=== PATIENT | male | born 1965 | race Caucasian/White ===

== ENCOUNTER 2017-11-15 11:57 | Inpatient (IN) ==
[2017-11-15] MEDS ORDERED: *HR* Promethazine 25 MG/ML VIAL IVP PRN (14:04)
[2017-11-15] MEDS ORDERED: Naloxone 0.4 MG/ML INJ IVP PRN (14:04)
[2017-11-15] MEDS ORDERED: *HR* LORazepam 2 MG/ML VIAL IVP PRN (14:04)
[2017-11-15 14:50] LABS: Mean Corpuscular HGB Conc 35.1 g/dL (31.6-35.5); Mean Corpuscular Volume 102.5 fL (83.0-100.0); Mean Platelet Volume 8.8 fL (9.4-12.4); Platelet Count 127 K/mcL (140-400); Red Blood Count 3.61 M/mcL (4.19-5.50); Red Cell Distribution Width 18.3 % (11.5-14.5)
--- NOTE | 2017-11-15 14:52 | Internal Med History&Physical ---
Date of Encounter: 11/15/17 Time of Encounter: 13:30 Internal Medicine - H&P: HPI Chief complaint: swelling; chills; SOB Admitted From: Hospital to Hospital Transfer Plans for Post Hospital Care: Home History of present illness: Mr. Lomeli is a 52 year old male who presents in direct transfer from [facility] ER for concerns of ascites, alcoholic induced hepatitis, and jaundice. I saw patient immediately upon arrival to the floor. He appears ill, jaundiced , has active chills/rigors, and complains of swelling everywhere and shortness of breath. He denies any chest pain. He has had a dry cough. He denies any abdominal pain, nausea, vomiting, or diarrhea. I inquired about his alcohol drinking, and he states his last drink was roughly 6-7 days ago. He is tachycardic, shaking, jittery, and blood pressure is elevated. Clinical signs and presentation point towards alcohol withdrawal. He denies any sign or symptom of alcohol withdrawal. Clinically, however, I am concerned about acute withdrawal. Additionally, he has mottling of his legs and other symptoms concerning for sepsis as well. I explained this to patient and his friend who was present at bedside. I inquired about prior episodes of any alcohol and/or prior hospitalizations. He states he has never been hospitalized before and denies ever having had alcohol withdrawal. He underestimates his level of alcohol intake as confirmed by his friend. I reviewed his labs at [facility] and note that he has a significant bilirubin level of 13.4; elevated transaminase, and coagulopathy of presumed liver disease. I explained to patient and his friend that we will treat him for sepsis, EtoH withdrawal, and consult GI as well as intervention radiology. We will try and attempt to proceed with paracentesis once his coagulopathy is corrected. If his liver dysfunction worsens and/or recommended by GI, he may need transfer to a tertiary care medical center such as [facility] or [facility]. Past Med Surg Social Fam HX - Past Medical History Source: patient, obtained from family, other ([facility] records) Medical history: no medical history Psychiatric history: no psych history - Past Surgical History Surgical History: orthopedic, other Additional surgical history: RIGHT FOOT SURGERY - Social History Smoking Status: Never smoker Smokeless Tobacco Status: No Alcohol use: heavy Drug use: none Current living situation: Home, With Family Activity Level: Independent ambulation Recent Out of Country Travel Within the Last 8 Weeks: No - Family History Mother Living Status: Hx Family GI Disorders: No Father Living Status: Still Living Hx Family GI Disorders: No Internal Medicine - H&P: Meds No Known Home Drugs 11/15/17 [History] 3 Allergy/AdvReac Type Severity Reaction Status Date / Time No Known Allergies Allergy Verified 11/15/17 08:19 - Constitutional Constitutional: chills, fatigue, night sweats, weakness, no fever(s) - EENT Eyes: no blurry vision, no change in vision Ears: no ear pain, no tinnitus Nose, mouth and throat: no nasal congestion, no sinus pressure, no sore throat - Cardiovascular Cardiovascular ROS IM: dyspnea, dyspnea on exertion, edema, orthopnea, palpitations, no chest pain - Respiratory Respiratory: cough, dyspnea, dyspnea on exertion, no hemoptysis, no chest congestion, no excessive phlegm production, no change in phlegm color, no pain with cough - Gastrointestinal Gastrointestinal: bloating, no abdominal pain, no diarrhea, no hematemesis, no hematochezia, no melena, no nausea, no vomiting - Genitourinary Genitourinary ROS male: no dysuria, no flank pain, no hematuria - Musculoskeletal Musculoskeletal ROS IM: no atrophy, no back pain, no joint swelling - Integumentary Integumentary IM: unusual bruising, jaundice - Neurological Neurological ROS: no dizziness, no focal weakness, no frequent falls, no headache(s) - Psychiatric Psychiatric: no anxiety, no depression - Endocrine Endocrine IM: no polydipsia, no polyuria - Hematologic/Lymphatic Hematologic/Lymphatic: easy bruising - Allergic/Immunologic Allergic/Immunologic: wheezing, no GI upset with certain foods - Constitutional Vitals: Temp Pulse Resp BP Pulse Ox 98.8 F 142 20 123/80 96 11/15/17 13:45 11/15/17 14:04 11/15/17 13:45 11/15/17 14:04 11/15/17 14:04 General appearance: Present: cooperative, A&O X 3, answers questions appropriately Exam: actively shaking/rigors; jitters; jaundiced; mottling of legs - Head Head exam: Present: atraumatic, normal inspection - Eye Eye exam: Present: EOMI, PERRL, scleral icterus Pupils: Present: normal accommodation - ENT ENT exam: Present: mucous membranes dry, normal exam, normal oropharynx - Neck Neck exam general surgery: Present: full ROM, supple. Absent: lymphadenopathy, tenderness, nuchal rigidity, thyromegaly - Respiratory Respiratory exam: Present: decreased breath sounds, rales (right base), respiratory distress, rhonchi, tachypnea. Absent: chest wall tenderness, wheezes - Cardiovascular Cardiovascular exam: Present: distant heart sounds, +S1, +S2, tachycardia. Absent: diastolic murmur, systolic murmur - GI/Abdominal GI/Abdominal exam: Present: distended, hypoactive bowel sounds, soft. Absent: guarding, hepatomegaly, mass, rebound, splenomegaly, tenderness, no peritoneal signs - Extremities Exam Extremities exam: Present: full ROM, mottling (BLE), pedal edema (3+). Absent: calf tenderness, cyanotic, joint swelling, normal capillary refill (delayed; roughly 4 seconds), tenderness - Back Exam Back exam: Absent: CVA tenderness (L), CVA tenderness (R) - Neurological Exam Neurological exam: Present: alert, CN II-XII intact, oriented X3, no focal deficits, strengths equal and symetr throughout Additional comments: jitters and asterixis (mild) - Psychiatric Psychiatric exam: Present: normal affect, normal mood - Skin Skin exam: Present: dry, petechiae, warm Additional comments: jaundiced; palmar erythema Internal Med - H&P Results - Labs Labs: I reviewed labs from [facility] and include the following: WBC 15.4 Hemoglobin 13.2 Hematocrit 37.6 Platelets 140 PTT 30.6 INR 2.7 Sodium 128 Potassium 3.5 Chloride 91 Carbon dioxide 27 BUN 12 Creatinine 1.14 Lactic acid 2.6 Total bilirubin 13.4 Direct bilirubin 8.6 AST 121 ALT 38 Alkaline phosphatase 231 - EKG Data -: EKG Interpreted by Myself EKG shows normal: sinus rhythm Rate: tachycardia - EKG Data Prior EKG available for review: no EKG comments: 11/15/17 15:02 Sinus tachycardia; no acute ST-T changes noted - Impressions ITS Impressions Chest X-Ray 11/15/17 13:42 IMPRESSION: Right basilar atelectasis. D/ / Chayo Sandoval MD / Chayo Sandoval MD Interpreting Provider: Chayo Sandoval MD - Diagnostic Studies CT scan - abdomen Additional comments: Report reviewed from [facility] -- findings noted - Assessment and plan (1) Sepsis Current Visit: Yes Status: Acute Assessment and plan: 1. Suspect GI source (SBP, colitis, etc.). 2. Will trend lactate levels, treat with IV Zosyn and Flagyl. 3. BP preserved. Will place on IVF and bolus if necessary. 4. Will order blood and urine cultures STAT. 5. Will need peritoneal fluid cultures once paracentesis performed. 6. Correct coagulopathy with FFP and Vitamin K. 7. Consult IR for paracentesis. Qualifiers: Sepsis type: sepsis due to unspecified organism Qualified Code(s): A41.9 - Sepsis, unspecified organism (2) Alcohol withdrawal Current Visit: Yes Status: Acute Assessment and plan: 1. Will place on CIWA protocol. 2. Will place on MVI, Thiamine, and Folate. 3. Monitor for worsening withdrawal. 4. Will add low dose beta cherry for tachycardia and withdrawal symptoms. 5. Patient will need to abstain from alcohol completely if he has any hope of senior care recovery -- discussed with patient and friend at length. Qualifiers: Complication of substance-induced condition: with unspecified complication Qualified Code(s): F10.239 - Alcohol dependence with withdrawal, unspecified (3) Cirrhosis of liver with ascites Current Visit: Yes Status: Acute Assessment and plan: 1. GI consult and IR consult as above. 2. EtOH abstinence recommended. Qualifiers: Hepatic cirrhosis type: alcoholic cirrhosis Qualified Code(s): K70.31 - Alcoholic cirrhosis of liver with ascites (4) DVT prophylaxis Current Visit: Yes Status: Acute Assessment and plan: 1. EPCD's.
[2017-11-15 14:56] LABS: INR 2.7
[2017-11-15 14:59] LABS: Activated Partial Thrombo Time 49.9 Seconds (26.0-36.0)
[2017-11-15] MEDS: 0.9 % Sodium Chloride 1,000 ML IVC SCH (15:08)
[2017-11-15] MEDS: MetroNIDAZOLE 500 MG/100 ML 500 MG/100 ML BAG IVPB SCH (15:10)
[2017-11-15 15:11] LABS: Anisocytosis 1+ (Not Present); Eosinophils # 0.3 K/mcL (0.0-0.6); Lymphocytes # 0.7 K/mcL (0.6-4.6); Macrocytosis Present (Not Present); Neutrophils # 14.6 K/mcL (1.6-8.9); Platelet Estimate Decreased (Normal)
[2017-11-15] MEDS: Piperacillin/Tazobactam 3.375 GM in 0.9 % Sodium Chloride Mini Bag 100 ML IVPB SCH (15:12)
[2017-11-15 15:16] LABS: Alanine Aminotransferase 34 Units/L (7-52); Albumin 2.2 g/dL (3.5-5.7); Albumin/Globulin Ratio 0.5 (1.1-2.2); Alkaline Phosphatase 213 Units/L (34-104); Aspartate Amino Transferase 104 Units/L (13-39); BUN/Creatinine Ratio 11 (6-26); Bilirubin,Direct 7.7 mg/dL (0.0-0.2); Bilirubin,Indirect 5.5 mg/dL (0.0-1.2); Bilirubin,Total 13.2 mg/dL (0.3-1.0); Blood Urea Nitrogen 14 mg/dL (6-20); Calcium 7.3 mg/dL (8.6-10.3); Carbon Dioxide 22 mEq/L (23-29); Chloride 92 mEq/L (98-107); Globulin 4.2 g/dL (2.4-3.5); Glucose 141 mg/dL (70-105); Osmolality,Calculated 267 (280-300); Potassium 3.5 mEq/L (3.5-5.1); Sodium 127 mEq/L (136-145); Total Protein 6.4 g/dL (6.4-8.9); eGFR For Non-African Americans > 60 (> 60)
[2017-11-15] MEDS ORDERED: 0.9 % Sodium Chloride 1,000 ML IVC ONE ×2 (15:39→15:59)
[2017-11-15 16:08] LABS: ABG Base Excess 0 mEq/L (-2 to 3); ABG HCO3 23 mEq/L (21-27); ABG Oxygen Saturation 97 % (95-98); ABG PCO2 31 mmHg (35-45); ABG PH 7.48 pH Units (7.32-7.45); ABG PO2 79 mmHg (85-104); ABG TCO2 24 mEq/L (20-26)
[2017-11-15] MEDS ORDERED: Albuterol 2.5 MG/3 ML NEBULIZER IH PRN (17:55)
[2017-11-15] MEDS: Ipratropium/Albuterol Neb 3 ML IH SCH ×2 (18:56→22:09)
[2017-11-15] MEDS: Thiamine (B-1) 100 MG, Folic Acid 1 MG, MVI, adult with vitamin K 10 ML in 0.9 % Sodi... IVPB SCH (19:19)
[2017-11-15] MEDS ORDERED: 0.9 % Sodium Chloride 250 ML ONE (23:55)
[2017-11-16] MEDS: MetroNIDAZOLE 500 MG/100 ML 500 MG/100 ML BAG IVPB SCH ×3 (00:18→16:49)
[2017-11-16] MEDS: Piperacillin/Tazobactam 3.375 GM in 0.9 % Sodium Chloride Mini Bag 100 ML IVPB SCH ×4 (00:19→23:43)
[2017-11-16 03:54] LABS: Basophils % 0.2 %; Eosinophils # 0.1 K/mcL (0.0-0.6); Eosinophils % 0.6 %; Hematocrit 30.8 % (37.5-50.1); Lymphocytes # 1.5 K/mcL (0.6-4.6); Lymphocytes % 8.9 %; Mean Corpuscular HGB Conc 34.7 g/dL (31.6-35.5); Mean Corpuscular Hemoglobin 35.4 pg (28.0-33.3); Mean Platelet Volume 9.1 fL (9.4-12.4); Monocytes # 1.9 K/mcL (0.0-1.3); Monocytes % 11.2 %; Nucleated Red Blood Cells 0.1 /100 WBC (0); Platelet Count 105 K/mcL (140-400); Red Blood Count 3.02 M/mcL (4.19-5.50); Red Cell Distribution Width 18.5 % (11.5-14.5); Segmented Neutrophils % 78.1 %
[2017-11-16 03:57] LABS: Hemoglobin 10.7 g/dL (12.9-16.9)
[2017-11-16 04:02] LABS: INR 1.9; Prothrombin Time 21.2 Seconds (9.4-12.1)
[2017-11-16] MEDS: Ipratropium/Albuterol Neb 3 ML IH SCH ×2 (04:03→10:45)
[2017-11-16 04:04] LABS: Activated Partial Thrombo Time 38.2 Seconds (26.0-36.0)
[2017-11-16 04:14] LABS: Alanine Aminotransferase 29 Units/L (7-52); Albumin 2.3 g/dL (3.5-5.7); Albumin/Globulin Ratio 0.6 (1.1-2.2); Alkaline Phosphatase 164 Units/L (34-104); Aspartate Amino Transferase 77 Units/L (13-39); BUN/Creatinine Ratio 13 (6-26); Bilirubin,Total 10.6 mg/dL (0.3-1.0); Blood Urea Nitrogen 11 mg/dL (6-20); Calcium 7.2 mg/dL (8.6-10.3); Carbon Dioxide 24 mEq/L (23-29); Chloride 99 mEq/L (98-107); Globulin 3.7 g/dL (2.4-3.5); Glucose 105 mg/dL (70-105); Magnesium 2.2 mg/dL (1.6-2.6); Osmolality,Calculated 276 (280-300); Potassium 3.2 mEq/L (3.5-5.1); Sodium 133 mEq/L (136-145); eGFR For Non-African Americans > 60 (> 60)
[2017-11-16 04:22] LABS: Platelet Estimate Normal (Normal)
[2017-11-16] MEDS: 0.9 % Sodium Chloride 1,000 ML IVC SCH (08:26)
--- NOTE | 2017-11-16 11:53 | Gastroenterology Consult Note ---
<Heladio Josephnoah Shore - Last Filed: 11/16/17 11:47> Date of Encounter: 11/16/17 Time of Encounter: 08:50 - Assessment and plan (1) Alcoholic hepatitis with ascites Current Visit: Yes Status: Acute Assessment and plan: Pt is being treated for sepsis as well. Labs are improving. He is continued on MVI, thiamine, IV fluids. He reports no ETOH in the past 8 days and plans to start AA at discharge to continue to abstain. Monitor labs, supportive care. (2) Alcoholic cirrhosis of liver with ascites Current Visit: Yes Status: Acute Assessment and plan: Pt is scheduled for paracentesis today. He needs to follow with GI as an outpatient. He will likely need continued on diuretics, however he is hypokalemic and borderline hypotensive at this time. He needs screening EGD to check for esophageal varices, can be done as an outpatient. - Time Spent With Patient Total time spent is greater than 50% in coordination of care (as documented) at patient's floor/unit and/or counseling patient: GI History of Present Illness - Data of Consult Patient: new to practice Consult date: 11/16/17 Requesting Physician: Fredis Stevens - Consult Narrative Reason for consult: alcoholic cirrhosis History of present illness: Mr. Lomeli is a 52 year old male who presents in direct transfer from [facility] ER for concerns of ascites, alcoholic induced hepatitis, and jaundice. He complained of swelling, shortness of breath, chills and jaundice. He denies abdominal pain, nausea, vomiting or diarrhea. He was tachycardic, shaking, jittery, and blood pressure was elevated. Clinical signs and presentation pointed towards alcohol withdrawal. He also had mottling of his legs and other symptoms concerning for sepsis as well. He states he has never been hospitalized before and denies ever having had alcohol withdrawal. He admits to daily drinkup up until 8 days ago. He said he recently switched to wine and slowly decreased the amount of daily alcohol to nothing. Labs showed a total bili of 13.4, down to 10.[address] abdomen showed Hepatomegaly, hepatic steatosis, and changes of hepatic cirrhosis.Sequela of portal hypertension. Low-attenuation 3.4 cm and 5.2 cm lesions adjacent to the gallbladder fossa in the left hepatic lobe. Although these could represent focal areas of fatty infiltration, MRI of the liver with contrast is recommended to exclude a neoplasm. Moderate amount of abdominal and pelvic ascites. Circumferential wall thickening in the hepatic flexure of the transverse colon and in the right colon/cecum. Although this could be reactive to the cirrhosis/ascites, colitis or colonic neoplasm not excluded. denies previous scopes MELD na- 26 Child class C-12 DF 52.5 poor prognosis Past Med Surg Social Fam HX - Past Medical History Medical history: no medical history Psychiatric history: no psych history - Past Surgical History Surgical History: orthopedic, other Additional surgical history: RIGHT FOOT SURGERY - Social History Smoking Status: Never smoker Smokeless Tobacco Status: No Alcohol use: heavy Drug use: none - Family History Mother Living Status: Hx Family GI Disorders: No Father Living Status: Still Living Hx Family GI Disorders: No Review of Systems: GI: as per [facility] GENERAL: denies fever, has some chills EYES: yellow discoloration ENT: denies pain with swallowing or difficulty swallowing CARDIO: denies chest pain, palpitations RESP: Shortness of breath with exertion : dark urine NEURO: weakness HEME: Denies any bruising MS: denies joint pain, joint swelling or back pain. DERM: denies rash or itching PSYCH: history of anxiety and depression - Constitutional Vitals: Temp Pulse Resp BP Pulse Ox 97.9 F 104 18 109/86 97 11/16/17 11:25 11/16/17 11:25 11/16/17 11:25 11/16/17 11:25 11/16/17 11:25 Exam: CONSTITUTIONAL:~alert, no acute distress.~HEAD:~normocephalic.~EYES:~jaundice.~ NECK:~no obvious swelling.~HEART:~regular rate and rhythm, no murmurs.~LUNGS:~ bilateral fair air entry, respirations slightlly labored.~ABDOMEN:~distended, soft, non tender, ascites noted.~RECTAL EXAM:~Deferred.~EXTREMITIES:~no clubbing , or cyanosis, 2+ BLE edema.~SKIN:~jaundice.~NEUROLOGIC:~no obvious focal defect.~~~~ Results - Labs CBC & Chem 7: 11/16/17 03:30 11/16/17 03:30 Labs: Last Result Calcium 7.2 mg/dL (8.6-10.3) L 11/16/17 03:30 Entire Visit Hgb 10.7 g/dL (12.9-16.9) L D 11/16/17 03:30 Hct 30.8 % (37.5-50.1) L 11/16/17 03:30 PT 21.2 Seconds (9.4-12.1) H 11/16/17 03:30 Total Bilirubin 10.6 mg/dL (0.3-1.0) H 11/16/17 03:30 AST 77 Units/L (13-39) H 11/16/17 03:30 ALT 29 Units/L (7-52) 11/16/17 03:30 - ABG ABG results: ABG ABG pH 7.48 pH Units (7.32-7.45) H 11/15/17 15:50 ABG pCO2 31 mmHg (35-45) L 11/15/17 15:50 ABG pO2 79 mmHg (85-104) L 11/15/17 15:50 ABG O2 Saturation 97 % (95-98) 11/15/17 15:50 PT/INR, D-dimer PT 21.2 Seconds (9.4-12.1) H 11/16/17 03:30 - Impressions Impressions Chest X-Ray 11/15/17 13:42 IMPRESSION: Right basilar atelectasis. D/ / Chayo Sandoval MD / Chayo Sandoval MD Interpreting Provider: Chayo Sandoval MD Consult Discharge Plan - Plan Referrals: Christina Young, AERIAL SPRAYER [Advanced Practice Nurse] - (this will be a new patient visit please call on discharge to get appointment) <Karen Clemente - Last Filed: 11/16/17 17:35> Date of Encounter: 11/16/17 Time of Encounter: 17:00 - Time Spent With Patient Total time spent is greater than 50% in coordination of care (as documented) at patient's floor/unit and/or counseling patient: GI History of Present Illness - Data of Consult Requesting Physician: Fredis Stevens - Consult Narrative History of present illness: Mr. Lomeli is a 52 year old male - Constitutional Vitals: Temp Pulse Resp BP Pulse Ox 98.7 F 70 16 117/77 97 11/16/17 16:35 11/16/17 16:35 11/16/17 16:35 11/16/17 16:35 11/16/17 16:35 Results - Labs CBC & Chem 7: 11/16/17 03:30 11/16/17 03:30 Labs: Last Result Calcium 7.2 mg/dL (8.6-10.3) L 11/16/17 03:30 Entire Visit Hgb 10.7 g/dL (12.9-16.9) L D 11/16/17 03:30 Hct 30.8 % (37.5-50.1) L 11/16/17 03:30 PT 21.2 Seconds (9.4-12.1) H 11/16/17 03:30 Total Bilirubin 10.6 mg/dL (0.3-1.0) H 11/16/17 03:30 AST 77 Units/L (13-39) H 11/16/17 03:30 ALT 29 Units/L (7-52) 11/16/17 03:30 - ABG ABG results: ABG ABG pH 7.48 pH Units (7.32-7.45) H 11/15/17 15:50 ABG pCO2 31 mmHg (35-45) L 11/15/17 15:50 ABG pO2 79 mmHg (85-104) L 11/15/17 15:50 ABG O2 Saturation 97 % (95-98) 11/15/17 15:50 PT/INR, D-dimer PT 21.2 Seconds (9.4-12.1) H 11/16/17 03:30 - Impressions Impressions Abdomen MRI 11/16/17 13:00 IMPRESSION: Limited evaluation due to motion artifact. The liver is markedly enlarged with severe steatosis and probable cirrhosis. The hypodense areas noted on recent CT correspond to more confluent areas of marked steatosis. No discrete liver lesion definitely seen. Mild splenomegaly suggests portal hypertension. D/ / Brice Amador MD / Brice Amador MD Interpreting Provider: Brice Amador MD - Attending Attestation I have personally performed a face to face evaluation on this patient. I have reviewed and agree with the care plan. History and Exam by me shows: Patient seen. Patient with the alcoholic cirrhosis with ascites and alcoholic hepatitis. Status post paracentesis. Does has coagulopathy and the malnutrition with very low albumin. Also has fluid retention with ascites and leg swelling. Recommendation: Vitamin K daily daily 10 mg subcutaneous for 3 days, albumin. given 50 g daily for 3 days. Low-dose lasix Aldactone 20/50. No steroids for now for his alcoholic hepatitis as LFTs are improving. Follow-up with GI as an outpatient.
[2017-11-16] MEDS ORDERED: Gadolinium Contrast Agent (WT Based) IV PRN (13:00)
[2017-11-16] MEDS ORDERED: *HR* LORazepam 2 MG/ML VIAL IVP PRN ×2 (13:36)
[2017-11-16] MEDS: Thiamine (B-1) 100 MG, Folic Acid 1 MG, MVI, adult with vitamin K 10 ML in 0.9 % Sodi... IVPB SCH (16:50)
--- NOTE | 2017-11-16 17:35 | Internal Med Progress Note ---
Hospitalist Progress Note - Encounter Date of Encounter: 11/16/17 Time of Encounter: 17:45 - Subjective Interval History: Patient is still has generalized swelling but denies shortness of breath chest pain fever chills nausea vomiting headache dizziness. Patient had diagnostic and therapeutic paracentesis with 1400 mL drained. Review the lab with high white count trending down INR, high bilirubin. Reviewed GI economic consultant note - Exam Vitals: Temp Pulse Resp BP Pulse Ox 98.7 F 70 16 117/77 97 11/16/17 16:35 11/16/17 16:35 11/16/17 16:35 11/16/17 16:35 11/16/17 16:35 Exam: General appearance: No acute distress, A&O X 3 Head exam: Atraumatic Eye exam: EOMI, PERRLA ENT exam: Moist oral mucosa Neck nontender, supple Respiratory exam: Crepitation bilaterally Cardiovascular exam: Regular rate and rhythm, no systolic murmur Abdominal exam: Soft, nontender, ascites, positive bowel sounds Extremities exam: No calf tenderness, +2 pedal edema Present: Neurological exam: Alert, awake, oriented 3, CN II-XII intact, no focal deficits. No facial droop. Normal speech. - Assessment and Plan (1) Cirrhosis of liver with ascites Current Visit: Yes Status: Inactive Assessment and Plan: Most likely alcohol induced hepatitis but never had any workup. New onset. Hepatitis panel ordered. Trending down INR but will monitor. 1 dose of vitamin K received in ER. MRI abdomen ordered by GI specialist with markedly enlarged liver with CVR is status post a sent probable cirrhosis, mildly splenomegaly suggests portal hypertension but no lesion found. Diagnostic and therapeutic paracentesis with 1400 mL drained by IR. awaited ascites fluid report. Alcohol abstinence recommended. Continue banana bag. IV Lasix 20 mg daily with a strict I&O's, fluid restriction, low-salt diet. BNP and echocardiogram also ordered to rule out underlying cardiac etiology. (2) Sepsis Current Visit: Yes Status: Acute Assessment and Plan: Raised lactic assess but normal trending down. Unknown source but suspecting GI. Patient denies any diarrhea abdominal pain but had more like distention and now relieved after paracentesis. Flagyl was stopped but will continue Zosyn and follow the culture report. (3) Alcohol withdrawal Current Visit: Yes Status: Acute Assessment and Plan: Patient had alcohol withdrawal in the past but not sure recently. Continue CIWA protocol, banana bag but will change to oral to avoid extra fluid. Low- dose beta cherry for tachycardia if needed. Beta cherry will also help and portal hypertension. (4) Portal hypertension Current Visit: Yes Status: Acute Assessment and Plan: No active bleed. Splenomegaly mild . Newly diagnosed. Will need EGD on OPD basis. GI on board (5) DVT prophylaxis Current Visit: Yes Status: Acute Assessment and Plan: 1. EPCD's. - Time Spent with Patient Total time spent is greater than 50% in coordination of care (as documented) at patient's floor/unit and/or counseling patient: 25 - 35 minutes Internal Medicine: Result - Labs CBC & Chem 7: 11/16/17 03:30 11/16/17 03:30 Labs: Short CBC 11/16/17 Range/Units 03:30 WBC 16.7 H (4.3-11.1) K/mcL Hgb 10.7 L D (12.9-16.9) g/dL Hct 30.8 L (37.5-50.1) % Plt Count 105 L (140-400) K/mcL Neutrophils # 13.0 H (1.6-8.9) K/mcL BMP 11/16/17 03:30 Sodium 133 L Potassium 3.2 L Chloride 99 Carbon Dioxide 24 BUN 11 Creatinine 0.83 Glucose 105 Calcium 7.2 L Liver Function 11/16/17 Range/Units 03:30 Total Bilirubin 10.6 H (0.3-1.0) mg/dL AST 77 H (13-39) Units/L ALT 29 (7-52) Units/L Alkaline Phosphatase 164 H (34-104) Units/L Albumin 2.3 L (3.5-5.7) g/dL - ABG Interpretation ABG results: ABG ABG pH 7.48 pH Units (7.32-7.45) H 11/15/17 15:50 ABG pCO2 31 mmHg (35-45) L 11/15/17 15:50 ABG pO2 79 mmHg (85-104) L 11/15/17 15:50 ABG O2 Saturation 97 % (95-98) 11/15/17 15:50 PT/INR, D-dimer PT 21.2 Seconds (9.4-12.1) H 11/16/17 03:30 - Impressions Impressions Abdomen MRI 11/16/17 13:00 IMPRESSION: Limited evaluation due to motion artifact. The liver is markedly enlarged with severe steatosis and probable cirrhosis. The hypodense areas noted on recent CT correspond to more confluent areas of marked steatosis. No discrete liver lesion definitely seen. Mild splenomegaly suggests portal hypertension. D/ / Brice Amador MD / Brice Amador MD Interpreting Provider: Brice Amador MD Consult Discharge Plan - Plan Referrals: Christina Young, PEDIATRIC NEUROPSYCHOLOGIST [Advanced Practice Nurse] - (this will be a new patient visit please call on discharge to get appointment) (1) Cirrhosis of liver with ascites Qualifiers: Hepatic cirrhosis type: alcoholic cirrhosis Qualified Code(s): K70.31 - Alcoholic cirrhosis of liver with ascites (2) Sepsis Qualifiers: Sepsis type: sepsis due to unspecified organism Qualified Code(s): A41.9 - Sepsis, unspecified organism (3) Alcohol withdrawal Qualifiers: Complication of substance-induced condition: with unspecified complication Qualified Code(s): F10.239 - Alcohol dependence with withdrawal, unspecified
[2017-11-16] MEDS: Furosemide 20 MG/2 ML VIAL IVP SCH (18:01)
[2017-11-16 19:01] LABS: Albumin 2.1 g/dL (3.5-5.7); Albumin/Globulin Ratio 0.6 (1.1-2.2); Bilirubin,Direct 5.8 mg/dL (0.0-0.2); Bilirubin,Indirect 3.9 mg/dL (0.0-1.2); Bilirubin,Total 9.7 mg/dL (0.3-1.0); Globulin 3.8 g/dL (2.4-3.5); Total Protein 5.9 g/dL (6.4-8.9)
[2017-11-16] MEDS ORDERED: Perflutren Lipid Microsphere 1.3 ML in 0.9 % Sodium Chloride 8.7 ML IVP ONE (21:46)
--- NOTE | 2017-11-17 02:15 | Electrocardiograph Report ---
[place] [address] Test Date: 2017-11-16 Pat Name: Twan Lomeli Department: 110 Room: 2N10 Gender: M Repair Clerk: AUBRIE : 1965 Requested By: Anthony Cardoza Order Number: [id number] Reading MD: Joi Hahn Measurements Intervals [place] Rate: 93 P: 45 PA: 162 QRS: 15 QRSD: 98 T: 19 QT: 392 QTc: 442 Interpretive Statements SINUS RHYTHM NONSPECIFIC ST-WAVE ABNORMALITY Electronically Signed On 11-16-2017 16:09:01 EDT by Joi Hahn
--- NOTE | 2017-11-17 02:21 | Electrocardiograph Report ---
[address] [address] Test Date: 2017-11-15 Pat Name: Twan Lomeli Department: 110 Room: 2N10 Gender: M Head Of Advertising: CHANTELL : 1965 Requested By: Anthony Cardoza Order Number: [id number] Reading MD: Joi Hahn Measurements Intervals [place] Rate: 145 P: 43 DC: 148 QRS: 12 QRSD: 86 T: 48 QT: 288 QTc: 372 Interpretive Statements SINUS TACHYCARDIA NONSPECIFIC ST-WAVE ABNORMALITY ABNORMAL RHYTHM ECG Electronically Signed On 11-16-2017 16:22:09 EDT by Joi Hahn
[2017-11-17 02:24] LABS: RBC,Peritoneal Fluid 0.003 M/mcL
[2017-11-17 02:35] LABS: Appearance of Peritoneal Fl CLOUDY (Clear)
[2017-11-17 02:44] LABS: Amylase,Peritoneal Fluid 15 Units/L (No Ref Range); Glucose,Peritoneal Fluid 64 mg/dL (No Ref Range); LDH,Peritoneal Fluid 157 Units/L (No Ref Range); Total Protein,Peritoneal Fluid < 3.0 g/dL (No Ref Range)
[2017-11-17 03:59] LABS: Hematocrit 35.5 % (37.5-50.1); Mean Corpuscular HGB Conc 33.8 g/dL (31.6-35.5); Mean Corpuscular Volume 106.6 fL (83.0-100.0); Mean Platelet Volume 8.8 fL (9.4-12.4); Platelet Count 133 K/mcL (140-400); Red Blood Count 3.33 M/mcL (4.19-5.50); Red Cell Distribution Width 18.7 % (11.5-14.5)
[2017-11-17 04:07] LABS: INR 1.9; Prothrombin Time 21.5 Seconds (9.4-12.1)
[2017-11-17 04:18] LABS: BUN/Creatinine Ratio 13 (6-26); Blood Urea Nitrogen 10 mg/dL (6-20); Calcium 7.3 mg/dL (8.6-10.3); Carbon Dioxide 29 mEq/L (23-29); Chloride 99 mEq/L (98-107); Glucose 85 mg/dL (70-105); Osmolality,Calculated 274 (280-300); Potassium 3.2 mEq/L (3.5-5.1); Sodium 133 mEq/L (136-145); eGFR For Non-African Americans > 60 (> 60)
[2017-11-17 04:33] LABS: Monocytes # 0.9 K/mcL (0.0-1.3); Neutrophils # 11.4 K/mcL (1.6-8.9); Platelet Estimate Normal (Normal)
[2017-11-17] MEDS: Piperacillin/Tazobactam 3.375 GM in 0.9 % Sodium Chloride Mini Bag 100 ML IVPB SCH ×3 (08:05→23:43)
[2017-11-17] MEDS: Furosemide 20 MG/2 ML VIAL IVP SCH (08:05)
[2017-11-17 09:32] LABS: % Iron Saturation 86 % (20-55); Iron 107 mcg/dL (65-175); Transferrin 89 mg/dL (203-362)
--- NOTE | 2017-11-17 09:40 | Gastroenterology Progress Note ---
<Enedina Joseph - Last Filed: 11/17/17 09:37> Date of Encounter: 11/17/17 Time of Encounter: 09:20 - Assessment and plan (1) Alcoholic hepatitis with ascites Current Visit: Yes Status: Acute Assessment and plan: Paracentesis report reviewed by Dr Clemente. Concerning for spontaneous bacterial peritonitis. Needs continued on antibiotics inpatient. He will need started on cipro 500 mg po daily indefinately on discharge. He has continued lower extremity edema, has been started on IV lasix, will need lasix 20 mg daily and aldactone 50 mg daily on discharge. Will give albumin 100 g daily x 3 days. PT remains elevated will give vitamin K daily x 3 days. Continue to monitor labs, may need periodic paracentesis. (2) Alcoholic cirrhosis of liver with ascites Current Visit: Yes Status: Acute Assessment and plan: He needs to follow with GI as an outpatient. He needs screening EGD to check for esophageal varices, can be done as an outpatient. - Time Spent With Patient Total time spent is greater than 50% in coordination of care (as documented) at patient's floor/unit and/or counseling patient: - Subjective Interval history: Patient is status post paracentesis. He has improved shortness of breath but has continued 3+ lower extremity edema. He denies abdominal pain, nausea or vomiting. - Constitutional Vitals: Temp Pulse Resp BP Pulse Ox 97.8 F 94 18 117/95 96 11/17/17 07:28 11/17/17 08:27 11/17/17 07:28 11/17/17 07:28 11/17/17 07:28 Exam: CONSTITUTIONAL:~alert, no acute distress.~HEAD:~normocephalic.~EYES:~jaundice.~ NECK:~no obvious swelling.~HEART:~regular rate and rhythm, no murmurs.~LUNGS:~ bilateral good air entry.~ABDOMEN:~ distended, firm, non tender,.~RECTAL EXAM:~ Deferred.~EXTREMITIES:~no clubbing, or cyanosis, 3+ ble edema.~SKIN:~jaundice.~ NEUROLOGIC:~no obvious focal defect.~~~~ Results - Labs CBC & Chem 7: 11/17/17 03:33 11/17/17 03:33 Labs: Last Result Calcium 7.3 mg/dL (8.6-10.3) L 08/03/18 03:33 Iron 107 mcg/dL (65-175) 11/17/17 08:54 % Saturation 86 % (20-55) H 11/17/17 08:54 Transferrin 89 mg/dL (203-362) L 11/17/17 08:54 Peritoneal Appearance CLOUDY (Clear) 11/16/17 09:10 Peritoneal Volume 60.0 mL 11/16/17 09:10 Peritoneal RBC 0.003 M/mcL (0.000-0.002) H 11/16/17 09:10 Periton Tot Nuc Cells > 60061 TNC/mcL (0-300) H 11/16/17 09:10 Periton Band Neuts Test Not Performed 11/16/17 09:10 Periton Lymphocytes % 1.0 % 11/16/17 09:10 Periton Monocytes % 19.0 % 11/16/17 09:10 Periton Other Cells % 4.0 % 11/16/17 09:10 Peritoneal Tot Protein < 3.0 g/dL (No Ref Range) 11/16/17 09:10 Peritoneal Albumin < 1.5 g/dL (No Ref Range) 11/16/17 09:10 Peritoneal LDH 157 Units/L (No Ref Range) 11/16/17 09:10 Peritoneal Glucose 64 mg/dL (No Ref Range) 11/16/17 09:10 Peritoneal Amylase 15 Units/L (No Ref Range) 11/16/17 09:10 Entire Visit Hgb 12.0 g/dL (12.9-16.9) L 11/17/17 03:33 Hct 35.5 % (37.5-50.1) L 11/17/17 03:33 PT 21.5 Seconds (9.4-12.1) H 11/17/17 03:33 Total Bilirubin 9.7 mg/dL (0.3-1.0) H 11/16/17 18:00 AST 76 Units/L (13-39) H 11/16/17 18:00 ALT 29 Units/L (7-52) 11/16/17 18:00 - ABG ABG results: ABG ABG pH 7.48 pH Units (7.32-7.45) H 11/15/17 15:50 ABG pCO2 31 mmHg (35-45) L 11/15/17 15:50 ABG pO2 79 mmHg (85-104) L 11/15/17 15:50 ABG O2 Saturation 97 % (95-98) 11/15/17 15:50 PT/INR, D-dimer PT 21.5 Seconds (9.4-12.1) H 11/17/17 03:33 - Impressions Impressions Abdomen MRI 11/16/17 13:00 IMPRESSION: Limited evaluation due to motion artifact. The liver is markedly enlarged with severe steatosis and probable cirrhosis. The hypodense areas noted on recent CT correspond to more confluent areas of marked steatosis. No discrete liver lesion definitely seen. Mild splenomegaly suggests portal hypertension. D/ / Brice Amador MD / Brice Amador MD Interpreting Provider: Brice Amador MD Consult Discharge Plan - Plan Referrals: Christina Young, GLOBAL PROGRAM MANAGER [Advanced Practice Nurse] - (this will be a new patient visit please call on discharge to get appointment) <Karen Clemente - Last Filed: 11/17/17 13:07> Date of Encounter: 11/17/17 - Time Spent With Patient Total time spent is greater than 50% in coordination of care (as documented) at patient's floor/unit and/or counseling patient: - Constitutional Vitals: Temp Pulse Resp BP Pulse Ox 98.1 F 86 18 132/98 96 11/17/17 11:44 11/17/17 11:44 11/17/17 11:44 11/17/17 11:44 11/17/17 11:44 Results - Labs CBC & Chem 7: 11/17/17 03:33 11/17/17 03:33 Labs: Last Result Calcium 7.3 mg/dL (8.6-10.3) L 11/17/17 03:33 Iron 107 mcg/dL (65-175) 11/17/17 08:54 % Saturation 86 % (20-55) H 11/17/17 08:54 Transferrin 89 mg/dL (203-362) L 11/17/17 08:54 Peritoneal Appearance CLOUDY (Clear) 11/16/17 09:10 Peritoneal Volume 60.0 mL 11/16/17 09:10 Peritoneal RBC 0.003 M/mcL (0.000-0.002) H 11/16/17 09:10 Periton Tot Nuc Cells > 80462 TNC/mcL (0-300) H 11/16/17 09:10 Periton Band Neuts Test Not Performed 11/16/17 09:10 Periton Lymphocytes % 1.0 % 11/16/17 09:10 Periton Monocytes % 19.0 % 11/16/17 09:10 Periton Other Cells % 4.0 % 11/16/17 09:10 Peritoneal Tot Protein < 3.0 g/dL (No Ref Range) 11/16/17 09:10 Peritoneal Albumin < 1.5 g/dL (No Ref Range) 11/16/17 09:10 Peritoneal LDH 157 Units/L (No Ref Range) 11/16/17 09:10 Peritoneal Glucose 64 mg/dL (No Ref Range) 11/16/17 09:10 Peritoneal Amylase 15 Units/L (No Ref Range) 11/16/17 09:10 Entire Visit Hgb 12.0 g/dL (12.9-16.9) L 11/17/17 03:33 Hct 35.5 % (37.5-50.1) L 11/17/17 03:33 PT 21.5 Seconds (9.4-12.1) H 11/17/17 03:33 Total Bilirubin 9.7 mg/dL (0.3-1.0) H 11/16/17 18:00 AST 76 Units/L (13-39) H 11/16/17 18:00 ALT 29 Units/L (7-52) 11/16/17 18:00 - ABG ABG results: ABG ABG pH 7.48 pH Units (7.32-7.45) H 11/15/17 15:50 ABG pCO2 31 mmHg (35-45) L 11/15/17 15:50 ABG pO2 79 mmHg (85-104) L 11/15/17 15:50 ABG O2 Saturation 97 % (95-98) 11/15/17 15:50 PT/INR, D-dimer PT 21.5 Seconds (9.4-12.1) H 11/17/17 03:33 - Impressions Impressions Abdomen MRI 11/16/17 13:00 IMPRESSION: Limited evaluation due to motion artifact. The liver is markedly enlarged with severe steatosis and probable cirrhosis. The hypodense areas noted on recent CT correspond to more confluent areas of marked steatosis. No discrete liver lesion definitely seen. Mild splenomegaly suggests portal hypertension. D/ / Brice Amador MD / Brice Amador MD Interpreting Provider: Brice Amador MD Echocardiogram 11/16/17 17:45 Impressions: LVEF 60%. Indeterminate diastolic function. Definity echo contrast was used. Normal right ventricular structure and function. No significant valvular dysfunction. No pulmonary hypertension. Left Ventricular Wall Motion: Rest Echo Findings All wall segments showed normal motion. Findings: Study Quality * Technically adequate exam. ECG Findings * Normal sinus rhythm. Left Ventricle * LVEF 60%. * Normal LV chamber size, wall thickness and function. * Indeterminate diastolic function. * There is no LV thrombus. * Definity echo contrast was used. Right Ventricle * Normal right ventricular structure and function. Left Atrium * Normal left atrial size. Right Atrium * Normal right atrial size. Mitral Valve * Normal mitral valve structure. * No mitral stenosis. * No mitral regurgitation. Aortic Valve * No aortic regurgitation. * Trileaflet aortic valve. * No aortic stenosis. Tricuspid Valve * Tricuspid valve not well visualized. * Trace tricuspid regurgitation. Pulmonic Valve * Pulmonic valve is not well visualized. * No pulmonic stenosis. * No pulmonic regurgitation. Pulmonary Artery * Pulmonary artery not well visualized. Aorta * Normally sized aortic root. Pericardium * There is no pericardial effusion present. Interatrial Septum * Interatrial septum not well evaluated. IVC * The IVC is not well evaluated. - Attending Attestation I have personally performed a face to face evaluation on this patient. I have reviewed and agree with the care plan. History and Exam by me shows: Patient seen patient with the SBP and also has coagulopathy and hypoalbuminemia. Recommendation: Continue IV antibiotic for SBP, we will need Cipro 500 daily for secondary prophylaxis of the SBP after acute treatment. Vitamin K 10 mg subcutaneous daily for coagulopathy IV albumin 100 g daily for 3 days as part of the treatment for his SBP. Low-dose Lasix and Aldactone 20/50 on discharge.
[2017-11-17] MEDS: *HR* Phytonadione 5 MG TABLET PO SCH (10:54)
[2017-11-17] MEDS: Albumin 25% 25gram/100mL 25 GM/100 ML IV.SOLN IVC SCH ×4 (10:55→16:02)
--- NOTE | 2017-11-17 14:21 | Internal Med Progress Note ---
Hospitalist Progress Note - Encounter Date of Encounter: 11/17/17 Time of Encounter: 14:16 - Subjective Interval History: Patient is still has generalized swelling but denies shortness of breath chest pain fever chills nausea vomiting headache dizziness. Patient had diagnostic and therapeutic paracentesis with 1400 mL drained. Review the lab with high white count in ascites fluid. trending down INR but is still high, low potassium level, high bilirubin but trending down. Reviewed GI new vehicle sales consultant note - Exam Vitals: Temp Pulse Resp BP Pulse Ox 98.1 F 86 18 132/98 96 11/17/17 11:44 11/17/17 11:44 11/17/17 11:44 11/17/17 11:44 11/17/17 11:44 Exam: General appearance: No acute distress, A&O X 3 Head exam: Atraumatic Eye exam: EOMI, PERRLA ENT exam: Moist oral mucosa Neck nontender, supple Respiratory exam: Crepitation bilaterally Cardiovascular exam: Regular rate and rhythm, no systolic murmur Abdominal exam: Soft, nontender, ascites, positive bowel sounds Extremities exam: No calf tenderness, +2 pedal edema Present: Neurological exam: Alert, awake, oriented 3, CN II-XII intact, no focal deficits. No facial droop. Normal speech. - Assessment and Plan (1) Cirrhosis of liver with ascites Current Visit: Yes Status: Inactive Assessment and Plan: Most likely alcohol induced hepatitis but never had any workup. New onset. Hepatitis panel ordered. Trending down INR but is still high therefore will continue vitamin K for 3 days and monitor INR. 1 dose of vitamin K received in ER. MRI abdomen ordered by GI specialist with markedly enlarged liver probable cirrhosis, mildly splenomegaly suggests portal hypertension but no lesion found. Diagnostic and therapeutic paracentesis with 1400 mL drained by IR. Alcohol abstinence recommended. Continue banana bag. IV Lasix 20 mg daily with a strict I&O's, fluid restriction, low-salt diet. Will change to oral Lasix 20 mg daily in add Aldactone 50 mg daily at the time of discharge. Albumin 100 g daily for 3 days was restarted by GI specialist. As needed paracentesis for therapeutic purposes. BNP high 234. echocardiogram with EF 60%, indeterminate diastolic function, no valvular dysfunction (2) Sepsis Current Visit: Yes Status: Acute Assessment and Plan: Most likely SBP. Initially Raised lactic assess but now normal. Patient denies any diarrhea abdominal pain but had more like distention and now relieved after paracentesis. Flagyl was stopped but will continue Zosyn and follow the culture report. Blood culture and urine culture no growth yet. Ascites fluid culture with no growth yet (3) Alcohol withdrawal Current Visit: Yes Status: Acute Assessment and Plan: Patient is not in withdrawal at this time. Patient had alcohol withdrawal in the past but not sure recently. Continue CIWA protocol, banana bag but changed to oral to avoid extra fluid. Low-dose beta cherry for tachycardia if needed. Beta cherry will also help and portal hypertension. (4) Portal hypertension Current Visit: Yes Status: Acute Assessment and Plan: No active bleed. Splenomegaly mild . Newly diagnosed. Will need EGD on OPD basis. GI on board (5) DVT prophylaxis Current Visit: Yes Status: Acute Assessment and Plan: 1. EPCD's. - Time Spent with Patient Total time spent is greater than 50% in coordination of care (as documented) at patient's floor/unit and/or counseling patient: 25 - 35 minutes Internal Medicine: Result - Labs CBC & Chem 7: 11/17/17 03:33 11/17/17 03:33 Labs: Short CBC 11/17/17 Range/Units 03:33 WBC 14.2 H (4.3-11.1) K/mcL Hgb 12.0 L (12.9-16.9) g/dL Hct 35.5 L (37.5-50.1) % Plt Count 133 L (140-400) K/mcL Neutrophils # 11.4 H (1.6-8.9) K/mcL BMP 11/17/17 03:33 Sodium 133 L Potassium 3.2 L Chloride 99 Carbon Dioxide 29 BUN 10 Creatinine 0.79 Glucose 85 Calcium 7.3 L Liver Function 11/16/17 Range/Units 18:00 Total Bilirubin 9.7 H (0.3-1.0) mg/dL Direct Bilirubin 5.8 H (0.0-0.2) mg/dL AST 76 H (13-39) Units/L ALT 29 (7-52) Units/L Alkaline Phosphatase 182 H (34-104) Units/L Albumin 2.1 L (3.5-5.7) g/dL - ABG Interpretation ABG results: ABG ABG pH 7.48 pH Units (7.32-7.45) H 11/15/17 15:50 ABG pCO2 31 mmHg (35-45) L 11/15/17 15:50 ABG pO2 79 mmHg (85-104) L 11/15/17 15:50 ABG O2 Saturation 97 % (95-98) 11/15/17 15:50 PT/INR, D-dimer PT 21.5 Seconds (9.4-12.1) H 11/17/17 03:33 - Impressions Impressions Abdomen MRI 11/16/17 13:00 IMPRESSION: Limited evaluation due to motion artifact. The liver is markedly enlarged with severe steatosis and probable cirrhosis. The hypodense areas noted on recent CT correspond to more confluent areas of marked steatosis. No discrete liver lesion definitely seen. Mild splenomegaly suggests portal hypertension. D/ / Brice Amador MD / Brice Amador MD Interpreting Provider: Brice Amador MD Echocardiogram 11/16/17 17:45 Impressions: LVEF 60%. Indeterminate diastolic function. Definity echo contrast was used. Normal right ventricular structure and function. No significant valvular dysfunction. No pulmonary hypertension. Left Ventricular Wall Motion: Rest Echo Findings All wall segments showed normal motion. Findings: Study Quality * Technically adequate exam. ECG Findings * Normal sinus rhythm. Left Ventricle * LVEF 60%. * Normal LV chamber size, wall thickness and function. * Indeterminate diastolic function. * There is no LV thrombus. * Definity echo contrast was used. Right Ventricle * Normal right ventricular structure and function. Left Atrium * Normal left atrial size. Right Atrium * Normal right atrial size. Mitral Valve * Normal mitral valve structure. * No mitral stenosis. * No mitral regurgitation. Aortic Valve * No aortic regurgitation. * Trileaflet aortic valve. * No aortic stenosis. Tricuspid Valve * Tricuspid valve not well visualized. * Trace tricuspid regurgitation. Pulmonic Valve * Pulmonic valve is not well visualized. * No pulmonic stenosis. * No pulmonic regurgitation. Pulmonary Artery * Pulmonary artery not well visualized. Aorta * Normally sized aortic root. Pericardium * There is no pericardial effusion present. Interatrial Septum * Interatrial septum not well evaluated. IVC * The IVC is not well evaluated. Consult Discharge Plan - Plan Referrals: Christina Young, TORCH OPERATOR [Advanced Practice Nurse] - (this will be a new patient visit please call on discharge to get appointment) (1) Cirrhosis of liver with ascites Qualifiers: Hepatic cirrhosis type: alcoholic cirrhosis Qualified Code(s): K70.31 - Alcoholic cirrhosis of liver with ascites (2) Sepsis Qualifiers: Sepsis type: sepsis due to unspecified organism Qualified Code(s): A41.9 - Sepsis, unspecified organism (3) Alcohol withdrawal Qualifiers: Complication of substance-induced condition: with unspecified complication Qualified Code(s): F10.239 - Alcohol dependence with withdrawal, unspecified
[2017-11-17] MEDS: traMADol 50 MG TABLET PO PRN (20:02)
[2017-11-18] MEDS: traMADol 50 MG TABLET PO PRN (03:09)
[2017-11-18] MEDS: Piperacillin/Tazobactam 3.375 GM in 0.9 % Sodium Chloride Mini Bag 100 ML IVPB SCH ×2 (08:22→16:32)
[2017-11-18] MEDS: *HR* Phytonadione 5 MG TABLET PO SCH (08:23)
[2017-11-18] MEDS: Thiamine (B-1) 100 MG TABLET PO SCH (08:23)
[2017-11-18] MEDS: Furosemide 20 MG/2 ML VIAL IVP SCH (08:23)
[2017-11-18] MEDS: Folic Acid 1 MG TABLET PO SCH (08:23)
[2017-11-18 09:36] LABS: Basophils # 0.1 K/mcL (0.0-0.2); Basophils % 0.5 %; Eosinophils # 0.2 K/mcL (0.0-0.6); Eosinophils % 0.9 %; Hematocrit 33.8 % (37.5-50.1); Hemoglobin 11.1 g/dL (12.9-16.9); Lymphocytes % 12.2 %; Mean Corpuscular HGB Conc 32.8 g/dL (31.6-35.5); Mean Corpuscular Hemoglobin 35.1 pg (28.0-33.3); Mean Platelet Volume 9.1 fL (9.4-12.4); Monocytes # 1.7 K/mcL (0.0-1.3); Monocytes % 10.3 %; Neutrophils # 11.8 K/mcL (1.6-8.9); Nucleated Red Blood Cells 0.3 /100 WBC (0); Platelet Count 159 K/mcL (140-400); Red Blood Count 3.16 M/mcL (4.19-5.50); Red Cell Distribution Width 17.9 % (11.5-14.5); Segmented Neutrophils % 74.1 %
[2017-11-18 09:43] LABS: BUN/Creatinine Ratio 14 (6-26); Blood Urea Nitrogen 10 mg/dL (6-20); Calcium 7.7 mg/dL (8.6-10.3); Carbon Dioxide 27 mEq/L (23-29); Chloride 101 mEq/L (98-107); Glucose 65 mg/dL (70-105); Osmolality,Calculated 275 (280-300); Potassium 3.4 mEq/L (3.5-5.1); Sodium 134 mEq/L (136-145); eGFR For Non-African Americans > 60 (> 60)
[2017-11-18] MEDS: Albumin 25% 25gram/100mL 25 GM/100 ML IV.SOLN IVC SCH ×4 (12:11→16:33)
--- NOTE | 2017-11-18 16:19 | Internal Med Progress Note ---
Hospitalist Progress Note - Encounter Date of Encounter: 11/18/17 Time of Encounter: 16:14 - Subjective Interval History: Patient is still has generalized swelling but better. denies shortness of breath chest pain fever chills nausea vomiting headache dizziness. Patient had diagnostic and therapeutic paracentesis with 1400 mL drained on 11/16. Review the lab with high white count in ascites fluid. Review of the lab with higher white count, potassium 3.4 - Exam Vitals: Temp Pulse Resp BP Pulse Ox 98.8 F 88 18 141/99 95 11/18/17 15:50 11/18/17 15:50 11/18/17 15:50 11/18/17 15:50 11/18/17 15:50 Exam: General appearance: No acute distress, A&O X 3 Head exam: Atraumatic Eye exam: EOMI, PERRLA ENT exam: Moist oral mucosa Neck nontender, supple Respiratory exam: Crepitation bilaterally-better Cardiovascular exam: Regular rate and rhythm, no systolic murmur Abdominal exam: Soft, nontender, ascites, positive bowel sounds Extremities exam: No calf tenderness, +2 pedal edema Present-slight better Neurological exam: Alert, awake, oriented 3, CN II-XII intact, no focal deficits. No facial droop. Normal speech. - Assessment and Plan (1) Cirrhosis of liver with ascites Current Visit: Yes Status: Inactive Assessment and Plan: Most likely alcohol induced hepatitis but never had any workup in the past. New onset. Hepatitis panel pending. Trending down INR but is still high therefore will continue vitamin K for 3 days and monitor INR. 1 dose of vitamin K received in ER. MRI abdomen ordered by GI specialist with markedly enlarged liver probable cirrhosis, mildly splenomegaly suggests portal hypertension but no lesion found. Diagnostic and therapeutic paracentesis with 1400 mL drained by IR. Alcohol abstinence recommended. Continue banana bag. IV Lasix 20 mg daily with a strict I&O's, fluid restriction, low-salt diet. Started him on Aldactone 50 mg daily today. Continue Albumin 100 g daily for 3 days as started by GI specialist. As needed paracentesis for therapeutic purposes. Follow cytology report. BNP high 234. echocardiogram with EF 60%, indeterminate diastolic function, no valvular dysfunction (2) Sepsis Current Visit: Yes Status: Acute Assessment and Plan: Most likely SBP. Initially Raised lactic assess but now normal. Patient denies any diarrhea abdominal pain but had more like distention and now relieved after paracentesis. Flagyl was stopped but will continue Zosyn and follow the culture report. Blood culture and urine culture no growth yet. Ascites fluid culture with no growth yet (3) Alcohol withdrawal Current Visit: Yes Status: Acute Assessment and Plan: Patient is not in withdrawal at this time. Patient had alcohol withdrawal in the past but not sure recently. Continue CIWA protocol, banana bag but changed to oral to avoid extra fluid. Patient had tachycardia therefore increase the beta cherry dose. Beta cherry will also help and portal hypertension. (4) Portal hypertension Current Visit: Yes Status: Acute Assessment and Plan: No active bleed. Splenomegaly mild . Newly diagnosed. Will need EGD on OPD basis. GI on board (5) DVT prophylaxis Current Visit: Yes Status: Acute Assessment and Plan: 1. EPCD's. - Time Spent with Patient Total time spent is greater than 50% in coordination of care (as documented) at patient's floor/unit and/or counseling patient: 25 - 35 minutes Internal Medicine: Result - Labs CBC & Chem 7: 11/18/17 08:18 11/18/17 08:18 Labs: Short CBC 11/18/17 Range/Units 08:18 WBC 16.0 H (4.3-11.1) K/mcL Hgb 11.1 L (12.9-16.9) g/dL Hct 33.8 L (37.5-50.1) % Plt Count 159 (140-400) K/mcL Neutrophils # 11.8 H (1.6-8.9) K/mcL BMP 11/18/17 08:18 Sodium 134 L Potassium 3.4 L Chloride 101 Carbon Dioxide 27 BUN 10 Creatinine 0.71 Glucose 65 L Calcium 7.7 L - ABG Interpretation ABG results: ABG ABG pH 7.48 pH Units (7.32-7.45) H 11/15/17 15:50 ABG pCO2 31 mmHg (35-45) L 11/15/17 15:50 ABG pO2 79 mmHg (85-104) L 11/15/17 15:50 ABG O2 Saturation 97 % (95-98) 11/15/17 15:50 PT/INR, D-dimer PT 21.5 Seconds (9.4-12.1) H 11/17/17 03:33 - Impressions Impressions Paracentesis Ultrasound 11/16/17 08:42 IMPRESSION: Successful ultrasound guided paracentesis. D/ / Altaf Lawton MD / Altaf Lawton MD Interpreting Provider: Altaf Lawton MD Consult Discharge Plan - Plan Referrals: Christina Young, CALCULATION REVIEWER [Advanced Practice Nurse] - (this will be a new patient visit please call on discharge to get appointment) (1) Cirrhosis of liver with ascites Qualifiers: Hepatic cirrhosis type: alcoholic cirrhosis Qualified Code(s): K70.31 - Alcoholic cirrhosis of liver with ascites (2) Sepsis Qualifiers: Sepsis type: sepsis due to unspecified organism Qualified Code(s): A41.9 - Sepsis, unspecified organism (3) Alcohol withdrawal Qualifiers: Complication of substance-induced condition: with unspecified complication Qualified Code(s): F10.239 - Alcohol dependence with withdrawal, unspecified
[2017-11-19] MEDS: Piperacillin/Tazobactam 3.375 GM in 0.9 % Sodium Chloride Mini Bag 100 ML IVPB SCH ×3 (00:46→19:57)
[2017-11-19] MEDS: Furosemide 20 MG/2 ML VIAL IVP SCH (09:29)
[2017-11-19] MEDS: Folic Acid 1 MG TABLET PO SCH (09:29)
[2017-11-19] MEDS: *HR* Phytonadione 5 MG TABLET PO SCH (09:29)
[2017-11-19] MEDS: Thiamine (B-1) 100 MG TABLET PO SCH (09:29)
[2017-11-19] MEDS: Albumin 25% 25gram/100mL 25 GM/100 ML IV.SOLN IVC SCH ×4 (11:58→17:42)
--- NOTE | 2017-11-19 13:06 | Internal Med Progress Note ---
Hospitalist Progress Note - Encounter Date of Encounter: 11/19/17 Time of Encounter: 13:03 - Subjective Interval History: Patient denies any new complaints. He still complains of some tightness of the abdomen but is much better since he had the drain did he denies any new fevers or chills at this point - Exam Vitals: Temp Pulse Resp BP Pulse Ox 98.3 F 85 18 124/90 97 11/19/17 11:16 11/19/17 12:04 11/19/17 11:16 11/19/17 11:16 11/19/17 11:16 Exam: GENERAL: Alert, moderate distress, cooperative EYES: Icteric. EARS: External ears normal, canals clear OROPHARYNX: Lips, mucosa, and tongue normal. Teeth and gums normal. Oropharynx normal. NECK: No jugulovenous distention, No carotid bruits, Carotid pulse normal contour, Supple LUNGS: Lungs clear to auscultation, Good diaphragmatic excursion CARDIAC: Normal S1 and S2; no rubs, murmurs, or gallops ABDOMEN: Abdomen is mildly distended and diffusely tender to palpation but no guarding or rigidity. EXTREMITIES: 1+ pitting edema bilateral lower extremities Rest of the exam is non contributory - Assessment and Plan (1) Cirrhosis of liver with ascites Current Visit: Yes Status: Inactive Assessment and Plan: Most likely alcohol induced hepatitis but never had any workup in the past. New onset. Hepatitis panel pending. Trending down INR but is still high therefore will continue vitamin K for 3 days and monitor INR. 1 dose of vitamin K received in ER. MRI abdomen ordered by GI specialist with markedly enlarged liver probable cirrhosis, mildly splenomegaly suggests portal hypertension but no lesion found. Diagnostic and therapeutic paracentesis with 1400 mL drained by IR. Alcohol abstinence recommended. Continue banana bag. IV Lasix 20 mg daily with a strict I&O's, fluid restriction, low-salt diet. Started him on Aldactone 50 mg daily today. Continue Albumin 100 g daily for 3 days as started by GI specialist. As needed paracentesis for therapeutic purposes. Follow cytology report. BNP high 234. echocardiogram with EF 60%, indeterminate diastolic function, no valvular dysfunction 11/19-ESLD due to long-standing alcohol history. Hepatitis panel is negative. He does have synthetic dysfunction and vitamin K has brought his INR down. He will need outpatient hepatology and gastroneurology follow-up. Continue to manage the second early of end-stage liver disease namely ascites and SBP. He is currently on IV antibiotics and a plan is in place to send him out with ciprofloxacin whenever he is ready for discharge. He does not have any encephalopathy at this point. We are trending cultures from the acetic fluid which so far has not grown anything. He did have outpatient blood cultures which are also negative for now. Continuing albumin and might consider another paracentesis in the coming week. I did recommend to the patient that this is a chronic condition and the only effective treatment is liver transplant but he will not go on liver transplant if he does not stop drinking. He does assure me that the drinking is a done deal for now (2) Sepsis Current Visit: Yes Status: Acute Assessment and Plan: Most likely SBP. Initially Raised lactic assess but now normal. Patient denies any diarrhea abdominal pain but had more like distention and now relieved after paracentesis. Flagyl was stopped but will continue Zosyn and follow the culture report. Blood culture and urine culture no growth yet. Ascites fluid culture with no growth yet 11/19-continue Zosyn. Most likely the source of initial sepsis was SBP. This seems to have resolved for now. Trending ascites fluid cultures as well as blood cultures. (3) Alcohol withdrawal Current Visit: Yes Status: Acute Assessment and Plan: Patient is not in withdrawal at this time. Patient had alcohol withdrawal in the past but not sure recently. Continue CIWA protocol, banana bag but changed to oral to avoid extra fluid. Patient had tachycardia therefore increase the beta cherry dose. Beta cherry will also help and portal hypertension. (4) DVT prophylaxis Current Visit: Yes Status: Acute Assessment and Plan: 1. EPCD's. (5) Portal hypertension Current Visit: Yes Status: Acute Assessment and Plan: No active bleed. Splenomegaly mild . Newly diagnosed. Will need EGD on OPD basis. GI on board-outpatient follow-up being planned DVT Prophylaxis: EPC D - Time Spent with Patient Total time spent is greater than 50% in coordination of care (as documented) at patient's floor/unit and/or counseling patient: 25 - 35 minutes Plan of Care Discussed with: patient Internal Medicine: Result - Labs CBC & Chem 7: 11/18/17 08:18 11/18/17 08:18 - ABG Interpretation ABG results: ABG ABG pH 7.48 pH Units (7.32-7.45) H 11/15/17 15:50 ABG pCO2 31 mmHg (35-45) L 11/15/17 15:50 ABG pO2 79 mmHg (85-104) L 11/15/17 15:50 ABG O2 Saturation 97 % (95-98) 11/15/17 15:50 PT/INR, D-dimer PT 21.5 Seconds (9.4-12.1) H 11/17/17 03:33 Consult Discharge Plan - Plan Referrals: Christina Young, CHANGE AGENT [Advanced Practice Nurse] - (this will be a new patient visit please call on discharge to get appointment) (1) Cirrhosis of liver with ascites Qualifiers: Hepatic cirrhosis type: alcoholic cirrhosis Qualified Code(s): K70.31 - Alcoholic cirrhosis of liver with ascites (2) Sepsis Qualifiers: Sepsis type: sepsis due to unspecified organism Qualified Code(s): A41.9 - Sepsis, unspecified organism (3) Alcohol withdrawal Qualifiers: Complication of substance-induced condition: with unspecified complication Qualified Code(s): F10.239 - Alcohol dependence with withdrawal, unspecified
[2017-11-20] MEDS: traMADol 50 MG TABLET PO PRN ×3 (00:58→19:47)
[2017-11-20] MEDS: Piperacillin/Tazobactam 3.375 GM in 0.9 % Sodium Chloride Mini Bag 100 ML IVPB SCH ×3 (04:29→05:14)
[2017-11-20 08:00] LABS: AFP Tumor Marker Non-Pregnant 2 ng/mL (0-9)
[2017-11-20 08:21] LABS: ANA IgG by ELISA NONE DETECTED (None Detected); Immunoglobulin A (CELIAC) 1010 mg/dL (68-408); Immunoglobulin G Subclass 1 1180 mg/dL (240-1118); Immunoglobulin G Subclass 2 995 mg/dL (124-549); Immunoglobulin G Subclass 3 123 mg/dL (21-134); Immunoglobulin G Subclass 4 230 mg/dL (1-123); Saccharomyces cerevisiae IgA 25.3 Units (0.0-24.9); Tissue Transglutaminase IgA 2 U/mL (0-3)
[2017-11-20 08:22] LABS: F-Actin (sm muscle) Ab IgG 10 Units (0-19)
--- NOTE | 2017-11-20 08:51 | Internal Med Progress Note ---
Hospitalist Progress Note - Encounter Date of Encounter: 11/20/17 Time of Encounter: 08:46 - Subjective Interval History: Patient had no acute events overnight. He states that abdominal pain is much better. He has had good urine output. He denies any fever, chills, chest pain , SOB, nausea, vomiting, changes in bladder, or changes in bowels. He has no complaints at this time. - Exam Vitals: Temp Pulse Resp BP Pulse Ox 99.0 F 88 20 112/74 95 11/20/17 07:45 11/20/17 07:45 11/20/17 07:45 11/20/17 07:45 11/20/17 07:45 Exam: Gen - Awake, alert, no acute distress HEENT - NCAT, PERRLA, EOMI, hearing grossly intact, oropharynx benign CV - RRR, normal S1 and S2, no M/R/G, 1+ BLE edema Resp - Normal WOB, CTAB, no W/R/R GI - Distended abdomen with positive fluid wave, no TTP, normal bowel sounds, no masses, no HSP Skin - Warm, dry, no rashes/lesions/ulcers Psych - Normal mood and affect, no depression or anxiety - Assessment and Plan (1) Cirrhosis of liver with ascites Current Visit: Yes Status: Acute Assessment and Plan: Most likely alcohol induced hepatitis but never had any workup in the past. New onset. Hepatitis panel pending. Trending down INR but is still high therefore will continue vitamin K for 3 days and monitor INR. 1 dose of vitamin K received in ER. MRI abdomen ordered by GI specialist with markedly enlarged liver probable cirrhosis, mildly splenomegaly suggests portal hypertension but no lesion found. Diagnostic and therapeutic paracentesis with 1400 mL drained by IR. Alcohol abstinence recommended. Continue banana bag. IV Lasix 20 mg daily with a strict I&O's, fluid restriction, low-salt diet. Started him on Aldactone 50 mg daily today. Continue Albumin 100 g daily for 3 days as started by GI specialist. As needed paracentesis for therapeutic purposes. Follow cytology report. BNP high 234. echocardiogram with EF 60%, indeterminate diastolic function, no valvular dysfunction 11/19-ESLD due to long-standing alcohol history. Hepatitis panel is negative. He does have synthetic dysfunction and vitamin K has brought his INR down. He will need outpatient hepatology and gastroneurology follow-up. Continue to manage the second early of end-stage liver disease namely ascites and SBP. He is currently on IV antibiotics and a plan is in place to send him out with ciprofloxacin whenever he is ready for discharge. He does not have any encephalopathy at this point. We are trending cultures from the acetic fluid which so far has not grown anything. He did have outpatient blood cultures which are also negative for now. Continuing albumin and might consider another paracentesis in the coming week. I did recommend to the patient that this is a chronic condition and the only effective treatment is liver transplant but he will not go on liver transplant if he does not stop drinking. He does assure me that the drinking is a done deal for now 11/20 - Symptoms much better controlled. He is in good spirits. SW working on insurance benefits. Will switch beta cherry to nadolol today. Will switch lasix to PO today. Ascites fluid culture no growth. Will switch zosyn to PO cipro (day 5 of 7). If we are able to coordinate insurance benefits today, will plan for discharge tomorrow. Will set up close follow up with PCP and GI at discharge. (2) Sepsis Current Visit: Yes Status: Acute Assessment and Plan: Most likely SBP. Initially Raised lactic assess but now normal. Patient denies any diarrhea abdominal pain but had more like distention and now relieved after paracentesis. Flagyl was stopped but will continue Zosyn and follow the culture report. Blood culture and urine culture no growth yet. Ascites fluid culture with no growth yet 11/19-continue Zosyn. Most likely the source of initial sepsis was SBP. This seems to have resolved for now. Trending ascites fluid cultures as well as blood cultures. 11/20 - Ascites fluid culture negative. Blood cultures negative to date. Will switch IV zosyn to PO cipro today as per above. (3) Alcohol withdrawal Current Visit: Yes Status: Acute Assessment and Plan: Patient is not in withdrawal at this time. Patient had alcohol withdrawal in the past but not sure recently. Continue CIWA protocol, banana bag but changed to oral to avoid extra fluid. Patient had tachycardia therefore increase the beta cherry dose. Beta cherry will also help and portal hypertension. 11/20 - Has not required any benzodiazepines for alcohol withdrawal to date. Will discontinue CIWA protocol. (4) Portal hypertension Current Visit: Yes Status: Acute Assessment and Plan: No active bleed. Splenomegaly mild . Newly diagnosed. Will need EGD on OPD basis. GI on board-outpatient follow-up being planned. 11/20 - Will set up close outpatient follow up with GI; plan for EGD as outpatient. Switch beta cherry to nadolol as per above. (5) DVT prophylaxis Current Visit: Yes Status: Acute Assessment and Plan: Continue SCDs. DVT Prophylaxis: Continue SCDs. - Time Spent with Patient Total time spent is greater than 50% in coordination of care (as documented) at patient's floor/unit and/or counseling patient: less than 15 minutes Plan of Care Discussed with: other (Pharmacist) Internal Medicine: Result - Labs CBC & Chem 7: 11/18/17 08:18 11/18/17 08:18 - ABG Interpretation ABG results: ABG ABG pH 7.48 pH Units (7.32-7.45) H 11/15/17 15:50 ABG pCO2 31 mmHg (35-45) L 11/15/17 15:50 ABG pO2 79 mmHg (85-104) L 11/15/17 15:50 ABG O2 Saturation 97 % (95-98) 11/15/17 15:50 PT/INR, D-dimer PT 21.5 Seconds (9.4-12.1) H 11/17/17 03:33 Consult Discharge Plan - Plan Referrals: Christina Young, SCHOOL GUARD [Advanced Practice Nurse] - (this will be a new patient visit please call on discharge to get appointment) (1) Cirrhosis of liver with ascites Qualifiers: Hepatic cirrhosis type: alcoholic cirrhosis Qualified Code(s): K70.31 - Alcoholic cirrhosis of liver with ascites (2) Sepsis Qualifiers: Sepsis type: sepsis due to unspecified organism Qualified Code(s): A41.9 - Sepsis, unspecified organism (3) Alcohol withdrawal Qualifiers: Complication of substance-induced condition: with unspecified complication Qualified Code(s): F10.239 - Alcohol dependence with withdrawal, unspecified
[2017-11-20 09:00] LABS: Basophils # 0.1 K/mcL (0.0-0.2); Basophils % 0.6 %; Eosinophils # 0.1 K/mcL (0.0-0.6); Eosinophils % 0.7 %; Hematocrit 31.7 % (37.5-50.1); Immature Granulocytes % 1.2 % (0-4); Lymphocytes # 1.9 K/mcL (0.6-4.6); Lymphocytes % 10.4 %; Mean Corpuscular HGB Conc 32.8 g/dL (31.6-35.5); Mean Corpuscular Hemoglobin 35.3 pg (28.0-33.3); Mean Corpuscular Volume 107.5 fL (83.0-100.0); Mean Platelet Volume 9.1 fL (9.4-12.4); Monocytes # 1.1 K/mcL (0.0-1.3); Monocytes % 6.2 %; Neutrophils # 14.6 K/mcL (1.6-8.9); Platelet Count 136 K/mcL (140-400); Red Blood Count 2.95 M/mcL (4.19-5.50); Red Cell Distribution Width 18.4 % (11.5-14.5); Segmented Neutrophils % 80.9 %
[2017-11-20 09:04] LABS: Hemoglobin 10.4 g/dL (12.9-16.9)
[2017-11-20 09:21] LABS: BUN/Creatinine Ratio 9 (6-26); Blood Urea Nitrogen 6 mg/dL (6-20); Calcium 8.3 mg/dL (8.6-10.3); Carbon Dioxide 26 mEq/L (23-29); Chloride 105 mEq/L (98-107); Glucose 129 mg/dL (70-105); Osmolality,Calculated 279 (280-300); Potassium 3.7 mEq/L (3.5-5.1); Sodium 135 mEq/L (136-145); eGFR For Non-African Americans > 60 (> 60)
[2017-11-20] MEDS: Furosemide 20 MG TABLET PO SCH (09:32)
[2017-11-20] MEDS: Thiamine (B-1) 100 MG TABLET PO SCH (09:32)
[2017-11-20] MEDS: Folic Acid 1 MG TABLET PO SCH (09:33)
[2017-11-20 13:45] LABS: Myeloperoxidase Ab 0 AU/mL (0-19); Serine Protease-3 Antibody 0 AU/mL (0-19)
[2017-11-21 06:09] LABS: Basophils # 0.1 K/mcL (0.0-0.2); Basophils % 0.6 %; Eosinophils # 0.2 K/mcL (0.0-0.6); Eosinophils % 0.9 %; Hemoglobin 11.2 g/dL (12.9-16.9); Immature Granulocytes % 1.3 % (0-4); Lymphocytes # 1.9 K/mcL (0.6-4.6); Lymphocytes % 9.9 %; Mean Corpuscular HGB Conc 32.9 g/dL (31.6-35.5); Mean Corpuscular Volume 106.3 fL (83.0-100.0); Mean Platelet Volume 9.5 fL (9.4-12.4); Monocytes # 1.4 K/mcL (0.0-1.3); Monocytes % 7.2 %; Neutrophils # 15.5 K/mcL (1.6-8.9); Platelet Count 158 K/mcL (140-400); Segmented Neutrophils % 80.1 %
[2017-11-21 06:36] LABS: BUN/Creatinine Ratio 13 (6-26); Blood Urea Nitrogen 7 mg/dL (6-20); Calcium 8.3 mg/dL (8.6-10.3); Carbon Dioxide 22 mEq/L (23-29); Chloride 104 mEq/L (98-107); Glucose 83 mg/dL (70-105); Osmolality,Calculated 273 (280-300); Sodium 133 mEq/L (136-145); eGFR For Non-African Americans > 60 (> 60)
[2017-11-21] MEDS: Furosemide 20 MG TABLET PO SCH (07:55)
[2017-11-21] MEDS: Thiamine (B-1) 100 MG TABLET PO SCH (07:55)
[2017-11-21] MEDS: Folic Acid 1 MG TABLET PO SCH (07:56)
[2017-11-21 11:11] VITALS: BP 126/80
--- NOTE | 2017-11-21 14:09 | Discharge Summary ---
- NOTES TO OUTPATIENT PROVIDER Notes to Outpatient Provider: Follow up with PCP in 2-3 days after discharge. Recheck BMP and CBC at that time. Follow up with outpatient GI/landscaping specialist. Orders not resulted at time of discharge: Pending orders 11/17/17 08:54 Alpha-1-AT Deficiency Reflex Routine Date of Encounter: 11/21/17 Time of Encounter: 14:07 - Discharge Diagnosis (1) Cirrhosis of liver with ascites Priority: Primary Status: Acute Qualifiers: Hepatic cirrhosis type: alcoholic cirrhosis Qualified Code(s): K70.31 - Alcoholic cirrhosis of liver with ascites (2) Sepsis Priority: Secondary Status: Acute Qualifiers: Sepsis type: sepsis due to unspecified organism Qualified Code(s): A41.9 - Sepsis, unspecified organism (3) Alcohol withdrawal Priority: Secondary Status: Acute Qualifiers: Complication of substance-induced condition: with unspecified complication Qualified Code(s): F10.239 - Alcohol dependence with withdrawal, unspecified (4) Portal hypertension Priority: Secondary Status: Acute (5) DVT prophylaxis Priority: Secondary Status: Acute Hospital course: Mr. Lomeli is a 52 year old male admitted for cirrhosis with ascites and sepsis. Patient was admitted to step down unit. SBP was suspected as source of sepsis. He was started on IV zosyn and IV flagyl. He was started on diuretics. GI was consulted. He had paracentesis. He got albumin for 3 days. Blood cultures and peritoneal fluid were no growth. ECHO with EF 60%, indeterminate diastolic function, and no valvular dysfunction. Patient states that he will abstain from alcohol going forward, and has given information for AA in [place]. He will follow up with GI/hepatology as outpatient. Antibiotics were transitioned to PO cipro. He will be discharged on cirpo, nadolol, lasix, and aldactone. He will follow up with PCP in 2-3 days after discharge. Repeat BMP and CBC can be checked at that time. Patient has met maximum benefit of this hospitalization and will be discharged home in stable condition. Discharge discussed with: patient, nurse, social work, other (Pharmacist) - Time Spent with Patient Total time spent providing and/or coordinating discharge services: Greater than 30 minutes - Discharge Medications Prescriptions: Ciprofloxacin [Cipro] 500 mg PO BID #3 tablet Furosemide [Lasix] 20 mg PO DAILY 7 Days #7 tablet Nadolol [Corgard] 40 mg PO DAILY 7 Days #7 tablet Spironolactone [Aldactone] 50 mg PO DAILY 7 Days #7 tablet Home Medications: Ciprofloxacin [Cipro] 500 mg PO BID #3 tablet 11/21/17 [Rx] Furosemide [Lasix] 20 mg PO DAILY 7 Days #7 tablet 11/21/17 [Rx] Nadolol [Corgard] 40 mg PO DAILY 7 Days #7 tablet 11/21/17 [Rx] Spironolactone [Aldactone] 50 mg PO DAILY 7 Days #7 tablet 11/21/17 [Rx] Allergies/Adverse Reactions: 3 Allergy/AdvReac Type Severity Reaction Status Date / Time No Known Allergies Allergy Verified 11/15/17 08:19 Date of admission: 11/15/17 13:15 Primary care physician: PCP NONE Consults: 11/15/17 14:02 Consult to Steeping Press Operator [CONS] Stat Reason for SW Consult: POA SET UP. PATIENT IS A . PATIENT HAS NOT INSURANCE. 11/15/17 14:04 Consult to Gastroenterology [CONS] Routine Consulting Provider: Gastroenterology Neisha Reason for Consult: alcoholic hepatitis; liver failure; possible need for colonoscopy. Time Notified: 14:14 Call Completed: Yes Consult to Interventional Radiology [CONS] Routine Consulting Provider: Radiology Interventional Cols Reason for Consult: diagnostic and therapeutic paracentesis tomorrow (11/16); need to correct INR first with FFP and Vitamin K. Call Completed: No Consult to Steeping Press Operator [CONS] Routine Reason for SW Consult: alcohol abuse; discharge planning 11/20/17 08:47 Consult to Steeping Press Operator [CONS] Stat Reason for SW Consult: Please verify insurance/[place] benefits. Plan for discharge tomorrow. Thanks. Discharging clinician: Demarcus Curry Anticipated date of discharge: 11/21/17 - Constitutional Vitals: Temp Pulse Resp BP Pulse Ox 98.7 F 89 16 126/80 96 11/21/17 11:07 11/21/17 11:07 11/21/17 11:07 11/21/17 11:07 11/21/17 11:07 General appearance: Present: cooperative, A&O X 3, morbidly obese, pleasant, no acute distress, answers questions appropriately - Respiratory Respiratory exam: Present: CTAB. Absent: accessory muscle use, rales, rhonchi, wheezes Additional comments: Normal WOB - Cardiovascular Cardiovascular exam: Present: RRR, +S1, +S2. Absent: diastolic murmur, gallop, rubs, systolic murmur Additional comments: 1+ BLE edema - GI/Abdominal GI/Abdominal exam: Present: distended (Positive fluid wave), normal bowel sounds , soft. Absent: hepatomegaly, mass, splenomegaly, tenderness - Psychiatric Psychiatric exam: Present: normal affect, normal mood. Absent: agitated, anxious, depressed - Skin Skin exam: Present: dry, intact, warm. Absent: cyanosis, rash - Patient Status Disposition: Home, Self-Care Condition: Good Functional capacity at discharge: independent ambulation Overall status at discharge: patient is progressing back to baseline - Discharge Instructions Follow Up With: Stephie Borja [Advanced Practice Nurse] - 12/04/17 2:30 pm (please take the new patient packet that you receive in the mail filled out with you to your appointment. Please take copy of insurance, picture ID, and list of medications including over the counter meds. Please show up 15 minutes for your appointment. If you need to cancel please call [phone] 24 hours in advance to cancel. Thanks) Additional Instructions: Follow up with PCP in 2-3 days after discharge. Recheck BMP and CBC at that time. Follow up with outpatient GI/landscaping specialist. - Diet and Activity Activity: resume usual activities as tolerated Diet: low fat, low cholesterol, low salt diet, other (Cardiac Diet) - VTE Documentation of Mechanical Device: Intermittent pneumatic compression device
[2017-11-23 23:40] LABS: A1A SZ Specimen WHOLE BLOOD; Alpha-1-Antitrypsin S Allele NEGATIVE; Alpha-1-Antitrypsin Z Allele NEGATIVE
[2017-11-24 07:44] LABS: Alpha-1-Antitrypsin 271 mg/dL (90-200)
== END 2017-11-21 16:03 | disposition home or self-care (01) | DRG 720 ==
LOC: 2NNU 13:15
PROVIDERS: ADMIT Internal Medicine; ATTEND Internal Medicine

== ENCOUNTER 2018-09-05 16:31 | Inpatient (IN) ==
[2018-09-05] MEDS ORDERED: *HR* OxyCODONE Immed Rel 5 MG TABLET PO PRN (18:16)
[2018-09-05] MEDS ORDERED: Naloxone 0.4 MG/ML INJ IVP PRN (18:16)
[2018-09-05] MEDS ORDERED: Ondansetron 4 MG/2 ML VIAL IVP PRN (18:16)
[2018-09-05] MEDS ORDERED: traMADol 50 MG TABLET PO PRN (18:16)
--- NOTE | 2018-09-05 18:21 | General Surg History&Physical ---
Date of Encounter: 09/05/18 Time of Encounter: 18:19 Assessment and Plan (1) Umbilical hernia, incarcerated Current Visit: Yes Status: Acute Twan Lomeli is doing well after his cholecystectomoy but now has an incarcerated umbilical hernia, collins with just omental fat. I did discuss the need for surgery sooner rather than later due to the fact he has cirrhosis and the hernia is incarcerated. I did discuss the steps of the procedure as well as the fact that I will use mesh. I also went over potential problems/complications, including worsening liver dysfunction, comatose state, and possible . I do not anticipate that will happen to him, but it was all discussed. The patient expressed understanding and wished to proceed. admit IVF at midnight NPO at midnight, regular diet until then activity as tolerated lovenox OR tomorrow The assessment and plan as outlined above was discussed with the patient and/or family members who expressed understanding and agreement. All questions were answered. History of Present Illness Chief complaint: incarcerated umbilical hernia HPI: 53M PMH significant for EtOH cirrhosis, child's class A who is now s/p robotic cholecystectomy. He has had a robotic cholecystectomy about 5 days ago but presents to my office early for post op evaluation due to an incarcarated umbilical hernia. The patient states he was lifting some heavy objects when he noted tenderness and redness along his umbilicus. Normally he does have protrusion through it, but this time around it would not reduce. No reports of fevers, chills, nausea or vomiting, but he does state that he is having some constipation, but he is having bowel function. I did discuss with the patient concerning repairing his hernia during his gallbladder surgery, but i elected not to for the following reasons 1.) I was concerned about spillage and possible infecting any mesh I would use 2.) I did not want to repair primarily and risk recurrence. Unfortunately I am not able to wait until 6 weeks. Past Med Surg Social Fam HX - Past Medical History Medical history: cirrhosis Additional medical history: ascites, pneumothorax, Psychiatric history: no psych history - Past Surgical History Surgical History: orthopedic, other Additional surgical history: RIGHT FOOT SURGERY - Social History Smoking Status: Never smoker Smokeless Tobacco Status: No Alcohol use: heavy Drug use: none - Family History Mother Living Status: Hx Family GI Disorders: No Father Living Status: Still Living Hx Family GI Disorders: No Medications and Allergies Omeprazole [PriLOSEC] 40 mg PO BID 08/20/18 [History] Brimonidine Tartrate [Lumify] 1 drop OP Q8H 08/31/18 [History] Pregabalin [Lyrica] 50 mg PO TID 08/31/18 [History] Allergy/AdvReac Type Severity Reaction Status Date / Time ciprofloxacin [From Cipro] AdvReac Itching Verified 08/31/18 07:08 Review of Systems All systems PM: 12 point ROS negative besides HPI findings General Surgery Exam Initial Vital Signs Temp Pulse Resp BP Pulse Ox 98.1 F 78 15 143/88 97 09/05/18 17:30 09/05/18 17:30 09/05/18 17:30 09/05/18 17:30 09/05/18 17:30 - General physical appearance no distress - Eyes normal ocular movement - ENT normocephalic - Neck trachea midline, no lymphadectomy - Respiratory normal expansion, normal respiratory effort - Cardiovascular Cardiovascular exam: Present: RRR - Abdomen Abdomen general surgery: Present: soft, tender (minimally tender) Hernia: Present: incarcerated, umbilical - Incision Incision: Present: clean and dry, intact - Integumentary Integumentary general surgery: Present: warm and dry - Neurologic Present: CN 2-12 grossly intact - Musculoskeletal Present: normal gait, normal posture - Psychiatric Psychiatric general surgery: Present: A&Ox3 Results - Labs All other labs normal.
[2018-09-05] MEDS: D5% in 0.45% NACL 1,000 ML IVC SCH (23:49)
[2018-09-06] MEDS ORDERED: *HR* Enoxaparin 40 MG/0.4 ML SYRINGE SQ SCH (06:00)
[2018-09-06] MEDS: D5% in 0.45% NACL 1,000 ML IVC SCH (09:57)
--- NOTE | 2018-09-06 14:55 | Anesthesia Evaluation PreOp ---
Date of Encounter: 09/06/18 Time of Encounter: 15:00 - Past History Planned Operation: Robotic Lap Assisted Umbilical Hernia Repair Cardiac History: Denies any Significant Hx Pulmonary History: Denies Any Significant HX RAILROAD ENGINEER History: Denies Any Significant HX Other Medical History: Hepatic (Cirrhosis) Alcohol Use: none, heavy Drug use: none Medications and Allergies Omeprazole [PriLOSEC] 40 mg PO BID 08/20/18 [History] Brimonidine Tartrate [Lumify] 1 drop OP Q8H 08/31/18 [History] Oxycodone HCl 5 mg PO Q12H PRN 09/06/18 [History] Allergy/AdvReac Type Severity Reaction Status Date / Time ciprofloxacin [From Cipro] AdvReac Itching Verified 09/06/18 12:51 - Meds/Allergy Pre-op Review Medications Reviewed: Yes Allergies Reviewed: Yes Beta Blockers on Current Med List: No Anesthesia Results - Labs Laboratory Tests 11/16/17 05/30/18 08/20/18 03:30 10:05 15:11 Hgb 13.4 Hct 38.7 Plt Count 100 L PT 14.2 H INR 1.3 APTT 38.2 H Sodium Potassium BUN Creatinine 08/20/18 15:11 Hgb Hct Plt Count PT INR APTT Sodium 134 L Potassium 4.1 BUN 11 Creatinine 0.80 - Imaging EKG: report reviewed (SR) Anesthesia Exam O2 Sat Height 1.85 m Weight 101.803 kg O2 Sat by Pulse Oximetry 100 O2 Sat by Pulse Oximetry 99 O2 Sat by Pulse Oximetry 98 O2 Sat by Pulse Oximetry 99 O2 Sat by Pulse Oximetry 100 O2 Sat by Pulse Oximetry 97 Vital Signs Temp Pulse Resp BP Pulse Ox 98.1 F 78 15 143/88 97 09/05/18 17:30 09/05/18 17:30 09/05/18 17:30 09/05/18 17:30 09/05/18 17:30 Height: 6'1 Weight: 224 lbs NPO (# of Hours): MN Pain Scale: 0 - HEENT Pupil (Motor): Pupils equal, EOMI Mallampati: II Teeth: Normal Oral Opening: Greater than 3 - RAILROAD ENGINEER LOC: Oriented RAILROAD ENGINEER Motor: Normal RUE, Normal LUE, Normal RLE, Normal LLE, Normal Face RAILROAD ENGINEER Sensory: Normal: RUE, LUE, RLE, LLE, Face - Cardiac Rhythm: Regular Murmur: None JVD: No Carotid Bruit: No - Pulmonary Breath Sounds: bilateral Clear Respiratory Effort: Symmetrical Anesthesia Assess/Plan ASA Score: 3 Level of consciousness: Cooperative, Oriented Anesthetic Plan: General Autologous Blood: No Monitoring Plan: Standard Monitors Recovery Plan: PACU (Discussed GA, agrees to proceed)
[2018-09-06] MEDS ORDERED: *HR* OxyCODONE Immed Rel 5 MG TABLET PO PRN (14:58)
[2018-09-06] MEDS ORDERED: *HR* HYDROmorphone (PF) 1 MG/ML SYRINGE IVP PRN (14:59)
[2018-09-06] MEDS ORDERED: *HR* Succinylcholine 200 MG/10 ML VIAL IVP ONE (16:29)
[2018-09-06] MEDS ORDERED: Ondansetron 4 MG/2 ML VIAL ONE (16:29)
[2018-09-06] MEDS ORDERED: *HR* FentaNYL (PF) 100 MCG/2 ML VIAL ONE ×2 (16:29→16:39)
[2018-09-06] MEDS ORDERED: *HR* Rocuronium Bromide 50 MG/5 ML VIAL ONE (16:29)
[2018-09-06] MEDS ORDERED: *HR* PHENYLEPHRINE 1,000 MCG/10 ML SYRINGE IVP ONE (16:29)
[2018-09-06] MEDS ORDERED: *HR* Propofol 200 MG/20 ML VIAL IVP ONE ×3 (16:29→17:04)
[2018-09-06] MEDS ORDERED: Lidocaine -MPF 4% 5 ML AMPUL ONE (16:29)
[2018-09-06] MEDS ORDERED: Lidocaine -MPF 2% 2 ML VIAL ONE (16:29)
[2018-09-06] MEDS ORDERED: CefOXitin 2,000 MG VIAL ONE (16:29)
[2018-09-06] MEDS ORDERED: Neostigmine Methylsulfate 3 MG/3 ML SYRINGE ONE (16:29)
[2018-09-06] MEDS ORDERED: *HR* Midazolam HCl 2 MG/2 ML VIAL ONE (16:29)
[2018-09-06] MEDS ORDERED: Dexamethasone 4 MG/ML VIAL ONE (16:29)
[2018-09-06] MEDS ORDERED: *HR* HYDROMORPHONE 2 MG/ML VIAL ONE (17:20)
--- NOTE | 2018-09-06 17:33 | Operative Note ---
Date of procedure: 09/06/18 Pre-op diagnosis: incarcerated umbilical hernia Post-op diagnosis: same Procedure: robotic umbilical hernia repair with mesh Implants: 9cm round mesh Complications: none Anesthesia: GETA Local Anesthetics: 0.5% Sensorcaine HCL SubQ (cc) Surgeon: Delonte Owens Was there an volleyball assistant coach present: Yes Fitness Attendant: Leila Espinoza Estimated blood loss (cc): 10 Specimen: hernia sac and contents Condition: stable Disposition: PACU Procedure in Detail: The patient was brought into the operating room suite. Positioned supine. Mechanical DVT prophylaxis was applied. The patient underwent smooth induction of anesthesia. The patient was prepped and draped in the usual fashion. Preoperative antibiotics were given. A timeout was held identifying correct patient, pathology, procedure, and physician. I started by creating 3 incision along the lateral abdominal region. The superior incision was 12mm to allow for open Radha technique. I entered the abdomen through the 12mm incision. Using a vicryl on a UR-6 needle, I was able to reapproximate, but did not close, the fascia. I then inserted the camera port followed by the camera and created two 8mm incisions inferior to the 12mm incision. Under direct visualization, I inserted the ports for my working arms. I then docked the robot in the usual fashion, broke scrub, and went to the robotic console. I began exposing the defect and then reducing the contents. I then measured the defect, using the length of the working tips of my instruments as rulers. I had to enlarge to defect to allow for complete reduction of contents. I then I then took a 0-V loc suture and, in a running fashion, did reapproximate and close the defect. I then meaursured the length of the suture line and added 2cm on all sides to fashion a mesh of appropriate length and width. II decided to use the 9cm round mesh and using a 2-0 v lock I circumferentially sutured the mesh to the abdominal wall. This concluded the robotic portion of the procedure. I then scrubbed and returned to the operative field, closed the fascia with the vircyl used at the beginning. I then close all incisions with interrupted 4-0 monocryl sutures and sealed them with dermabond. The patient tolerated the proceudre and was escorted to PACU in stable condition.
--- NOTE | 2018-09-06 17:40 | General Surgery Progress Note ---
Date of Encounter: 09/06/18 Time of Encounter: 17:39 - Assessment and Plan (1) Umbilical hernia, incarcerated Current Visit: Yes Status: Acute 53M s/p robotic umbilical hernia repair with mesh; will keep patient to ensure adequate pain control diet as tolerated pain regimen as written chemical dvt prophylaxis activity as tolerated Subjective Patient reports: no new complaints Objective Vital Signs - Last 8 Hours Temp Pulse Resp BP Pulse Ox 09/06/18 11:15 98.2 F 74 15 130/78 100 Intake and Output 09/06/18 09/06/18 09/06/18 07:59 15:59 23:59 Intake Total 1000 / 1000 Balance 1000 / 1000 Intake: IV Fluids 1000 / 1000 D5% And 0.45% Nacl 1000 Ml Bag 1000 / 1000 1,000 ML @ 100 mls/hr IVC .Q10H [facility] Rx#:[id number] Other: Meal NPO # Voids 1 Blood Glucose* 105 78 - General physical appearance no distress - Respiratory normal expansion, normal respiratory effort - Cardiovascular Cardiovascular exam: Present: RRR - Abdomen Abdomen: Present: soft, tender Hernia: incarcerated, umbilical - Incision Incision: Present: clean and dry, intact - Neurologic CN 2-12 grossly intact - Psychiatric oriented to time, oriented to person, oriented to place Consult Discharge Plan - Plan Referrals: Stephie Borja [Primary Care Provider] -
--- NOTE | 2018-09-06 18:59 | Anesthesia Evaluation Post Op ---
Date of Encounter: 09/06/18 Time of Encounter: 18:59 - Vital Signs Vital Signs: Vital Signs/O2 Sat, Most Current Temp Pulse Resp BP Pulse Ox 99.1 F 96 16 140/89 98 09/06/18 18:21 09/06/18 18:21 09/06/18 18:21 09/06/18 18:21 09/06/18 18:21 - Lungs Lungs: Clear Ascult./Percussion - Airway Airway: Non-obstructed - Cardiovascular Regular Rate - Mental Status Mental Status: Alert & Oriented, Answers Appropriately - Pain Pain Scale: 0 Pain Scale used: Numeric (1 - 10) - Nausea Vomiting Nausea Vomiting: Not Present - Hydration Hydration: Ice chips, Has not voided - Discharge PostOp Status: Transfer Patient to floor
[2018-09-06] MEDS ORDERED: Ondansetron 4 MG/2 ML VIAL IVP PRN (19:09)
[2018-09-06] MEDS ORDERED: D5% in 0.45% NACL 1,000 ML IVC SCH (19:09)
[2018-09-06] MEDS: *HR* OxyCODONE Immed Rel 5 MG TABLET PO PRN (19:43)
[2018-09-07] MEDS: traMADol 50 MG TABLET PO PRN ×2 (00:10→08:05)
[2018-09-07] MEDS: *HR* OxyCODONE Immed Rel 5 MG TABLET PO PRN (03:58)
[2018-09-07] MEDS ORDERED: *HR* Enoxaparin 40 MG/0.4 ML SYRINGE SQ SCH (06:00)
[2018-09-07 07:14] LABS: Basophils % 0.2 %; Eosinophils # 0.1 K/mcL (0.0-0.6); Eosinophils % 0.5 %; Hematocrit 36.9 % (37.5-50.1); Hemoglobin 12.3 g/dL (12.9-16.9); Immature Granulocytes % 0.4 % (0-4); Lymphocytes # 1.2 K/mcL (0.6-4.6); Lymphocytes % 11.4 %; Mean Corpuscular HGB Conc 33.3 g/dL (31.6-35.5); Mean Corpuscular Hemoglobin 30.8 pg (28.0-33.3); Mean Corpuscular Volume 92.5 fL (83.0-100.0); Mean Platelet Volume 10.9 fL (9.4-12.4); Monocytes # 0.9 K/mcL (0.0-1.3); Monocytes % 8.7 %; Neutrophils # 8.1 K/mcL (1.6-8.9); Platelet Count 111 K/mcL (140-400); Red Blood Count 3.99 M/mcL (4.19-5.50); Red Cell Distribution Width 12.8 % (11.5-14.5); Segmented Neutrophils % 78.8 %
--- NOTE | 2018-09-07 07:58 | Discharge Summary ---
Orders not resulted at time of discharge: Pending orders 09/06/18 17:31 Surgical Pathology [PTH] Routine Date of Encounter: 09/07/18 Time of Encounter: 07:59 - Discharge Diagnosis (1) Umbilical hernia, incarcerated Priority: Primary Status: Acute Comments: 53M POD #1 s/p robotic umbilical hernia repair with mesh; patient appropriately tender; tolerating diet, ambulating okay for d/c General Surgery Exam Initial Vital Signs Temp Pulse Resp BP Pulse Ox 98.1 F 78 15 143/88 97 09/05/18 17:30 09/05/18 17:30 09/05/18 17:30 09/05/18 17:30 09/05/18 17:30 - General physical appearance no distress - Respiratory normal expansion, normal respiratory effort - Cardiovascular Cardiovascular exam: Present: RRR - Abdomen Abdomen general surgery: Present: soft, tender (appropriately tender) - Incision Incision: Present: clean and dry, intact - Integumentary Integumentary general surgery: Present: warm and dry - Neurologic Present: CN 2-12 grossly intact - Musculoskeletal Present: normal posture - Psychiatric Psychiatric general surgery: Present: A&Ox3 - Hospital Course Hospital course: Mr. Lomeli is a 53 year old male PMH significant for EtOH cirrhosis, child's class A who had an umbilical hernia that became incarcerated after heaving lifting. he went for operative repair (robotic umbilical hernia repair). on POD #1, he has met discharge criteria and is suitable to be discharged home Time spent discussing smoking cessation with patient: 3 to 10 minutes - Time Spent with Patient Total time spent providing and/or coordinating discharge services: Greater than 30 minutes Specific discharge activities: DO NOT LIFT MORE THAN 15lbs; NO DRIVING ON NARCOTICS!!! - Discharge Medications Prescriptions: New Docusate [Colace] 100 mg PO BID 30 Days #60 capsule Psyllium Husk [Metamucil] 0.52 gm PO BID 60 Days #120 capsule Continued Omeprazole [PriLOSEC] 40 mg PO BID Brimonidine Tartrate [Lumify] 1 drop OP Q8H Oxycodone HCl 5 mg PO Q12H PRN 7 Days #14 tablet PRN Reason: Pain Home Medications: Omeprazole [PriLOSEC] 40 mg PO BID 08/20/18 [History] Brimonidine Tartrate [Lumify] 1 drop OP Q8H 08/31/18 [History] Docusate [Colace] 100 mg PO BID 30 Days #60 capsule 09/07/18 [Rx] Oxycodone HCl 5 mg PO Q12H PRN 7 Days #14 tablet 09/07/18 [Rx] Psyllium Husk [Metamucil] 0.52 gm PO BID 60 Days #120 capsule 09/07/18 [Rx] Allergies/Adverse Reactions: Allergy/AdvReac Type Severity Reaction Status Date / Time ciprofloxacin [From Cipro] AdvReac Itching Verified 09/06/18 12:51 Date of admission: 09/05/18 16:52 Primary care physician: Stephie Borja Discharging clinician: Delonte Owens Anticipated date of discharge: 09/07/18 Labs on day of discharge: Labs from last 24 hours 09/07/18 09/06/18 09/06/18 07:00 11:25 05:14 WBC 10.3 RBC 3.99 L Hgb 12.3 L Hct 36.9 L MCV 92.5 MCH 30.8 MCHC 33.3 RDW 12.8 Plt Count 111 L MPV 10.9 Immature Gran % 0.4 Seg Neutrophils % 78.8 Lymphocytes % 11.4 Monocytes % 8.7 Eosinophils % 0.5 Basophils % 0.2 Neutrophils # 8.1 Lymphocytes # 1.2 Monocytes # 0.9 Eosinophils # 0.1 Basophils # 0.0 POC Glucose 79 105 H - Patient Status Disposition: Home, Self-Care Condition: Good Functional capacity at discharge: independent ambulation Overall status at discharge: patient is back to baseline - Discharge Instructions Follow Up With: Stephie Borja [Primary Care Provider] - Delonte Owens MD [Non-Partnered Physician] - (call also see Varsha Siddiqi CNP in 1-2 weeks) Additional Instructions: Pain Narcotics are prescribed. take 1-2 tabs q6hrs as needed. If they are not needed, you can use tylenol and ibuprofen, alternating every 6 hrs for pain. If you choose the non-narcotic option, please take the tylenol and ibuprofen regimen around the clock, whether you feel pain or not. Please use stool softner if you take the narcotics. Do NOT drive while taking narcotics. Activity Please limit activity to no strenuous activity/exercise, no lifting more than 15lbs until seen at your 2 week appointment. Additional instructions will be given then. Diet As tolerated. I strongly recommend that you please start with a liquid diet and, after 6 hours, you can advance to a regular diet. Incisions Keep dry for 48 hours; You can apply ice to the incisions and any sore portion of your abdomen, 20 min on then 20 min off. Warnings If you begin to experience severe abdominal pain, poor food tolerance characterized by nausea and vomiting, inability to have a bowel movement, severe diarrhea, redness of your incisions, purulent (pus-like) drainage, or opening of your incisions, or if you experience any fevers, chills, chest pain, shortness of breath, or any symptoms you feel warrants an evaluation, please call the office and await instructions or report to the closest emergency department or [facility] center or report to the emergency department here at [place]. Thank you for allowing me to take care of you! - Diet and Activity Activity: increase activity as tolerated, other (NO HEAVY LIFTING; NO LIFTING MORE THAN 15lbs!) Diet: advance to your usual diet
[2018-09-07 09:04] VITALS: BP 134/83
== END 2018-09-07 09:46 | disposition home or self-care (01) | DRG 228 ==
LOC: 3ANU
PROVIDERS: ADMIT Surgery; ATTEND Surgery